=== PATIENT | female | born 1935 | race Caucasian/White ===

== ENCOUNTER 2016-07-25 03:09 | Emergency (ER) | payer OTHER, MEDICARE ==
[~2016-07-25] VITALS: Ht 165.1 cm; Wt 61.2 kg
[~2016-07-25 03:09] MED LIST: CALCIUM + D3 E1 EACH PO; DAILY MULTIPLE1 EACH PO; KEFLEX500 MG PO; OMEGA-3 ACID ETH1 GM PO; PROBIOTIC FORM1 EACH PO; SERTRALINE HCL50 MG PO; VIBRAMYCIN 100100 MG PO; VITAMIN B122500 MC1 PO; VITAMIN D-32000 UNIT PO; VITAMIN E400 UNI1 PO; XANAX 0.25MG0.25 MG PO
[2016-07-25 03:18] VITALS: BP 129/77
[2016-07-25] MEDS ORDERED: ZOFRAN ODT4 M1 SL (03:31)
--- NOTE | 2016-07-25 03:32 | ED GI/GU/ABDOMINAL COMPLAINT ---
History of Present Illness General Chief Complaint: General Adult Stated Complaint: BIBA, VOMITING, WEAKNESS Source: patient, family, old records, EMS Exam Limitations: no limitations Vital Signs & Intake/Output Vital Signs & Intake/Output Vital Signs Date Time Temp Pulse Resp B/P Pulse O2 O2 Flow FiO2 Ox Delivery Rate 07/25 0318 97.3 93 16 129/77 95 Room Air Allergies Coded Allergies: MDX - PCN (penicillin) (PCN (PENICILLIN)) (Intermediate, HIVES 03/25/15) Reconcile Medications Alprazolam (Xanax 0.25MG Tab) 0.25 MG TAB 1 TAB PO QHS PRN ANXIETY Calcium/Vitamin D (Calcium + D) (Unknown Strength) TAB (Unknown Dose) PO BID SUPPLEMENT (Reported) Cholecalciferol (Vitamin D3) (Vitamin D-3) 2,000 UNIT TABLET 1 TAB PO DAILY VITAMIN SUPPORT (Reported) Cyanocobalamin (Vitamin B-12) (Vitamin B12) 2,500 MCG TABLET 1 TAB PO DAILY VITAMIN SUPPORT (Reported) Doxycycline (Vibramycin 100 MG Cap) 100 MG CAP 1 TAB PO BID INFN Lactobacillus Acidophilus (Probiotic Formula Capsule) 1 CAP CAP 1 CAP PO DAILY SUPPLEMENT (Reported) Multivitamin (Daily Multiple Vitamin) 1 EACH TABLET 1 TAB PO DAILY VITAMIN SUPPORT (Reported) Chloe-3 Acid Ethyl Esters 1 GM CAPSULE 2 CAP PO DAILY VITAMIN SUPPORT ( Reported) Ondansetron (Zofran Odt) 4 MG TAB.RAPDIS 1 TAB SL TID PRN nausea/vomiting Sertraline HCl 50 MG TABLET 1 TAB PO DAILY PRN ANXIETY (Reported) Vitamin E (E400) (Unknown Strength) SGL 3 SGL PO DAILY SUPPLEMENT (Reported) Triage Note: PT BIBA FROM [facility]. PER PT, SHE HAS BEEN FEELING FINE ALL DAY LONG. SHE WOKE UP ABOUT 2 HOURS AGO AND EXPERIENCED SOME N/V. PT STATES HER LAST MEAL WAS AROUND 5PM. PT ARRIVES TO ED ALERT AND ORIENTED. PT HAS NO COMPLAINTS AT THIS TIME ASIDE FORM BEING TIRED. Triage Nurses Notes Reviewed? yes LMP (ages 10-50): post menopausal ? n Is pt currently ? No Onset: Just prior to arrival Duration: hour(s):, better, intermittent Timing: no prior history Quality/Severity: mild, vomiting Radiation: no radiation Activities at Onset: none Prior Abdominal Problems: none Past Sexual History: Unobtainable at this time Associated Symptoms: nausea/vomiting HPI: Several hours prior to admission patient had episode of vomiting. She reports having gait instability and episodic dizziness and fell without injury prior to admission. Patient was helped to her bedroom she vomited again. She denies fever chills abdominal pain diarrhea chest pain cough shortness of breath dysuria rash bleeding. Past History Travel History Traveled to [place] past 21 day No Medical History Any Pertinent Medical History? see below for history Neurological: SHUNT SPINAL MENINGITIS Gastrointestinal: CDIF Psychiatric: anxiety Cancer(s): lung cancer Other Medical Hx: Left lower extremity cellulitis Surgical History Surgical History: pelvic lymph node dissection approximately 50 years ago. Psychosocial History Who do you live with Patient/Self What is your primary language Djiboutian Tobacco Use: Never used ETOH Use: denies use Illicit Drug Use: denies illicit drug use Family History Hx Contributory? No Review of Systems Review of Systems Constitutional: Reports: no symptoms. EENTM: Reports: no symptoms. Respiratory: Reports: no symptoms. Cardiovascular: Reports: no symptoms. GI: Reports: see HPI, vomiting. Genitourinary: Reports: no symptoms. Musculoskeletal: Reports: no symptoms. Skin: Reports: no symptoms. Neurological/Psychological: Reports: no symptoms. Hematologic/Endocrine: Reports: no symptoms. Immunologic/Allergic: Reports: no symptoms. All Other Systems: Reviewed and Negative Physical Exam Physical Exam General Appearance: well developed/nourished, alert, awake, anxious, comfortable Head: atraumatic, normal appearance Eyes: Bilateral: normal appearance, PERRL, EOMI, normal inspection. Ears, Nose, Throat, Mouth: hearing grossly normal, moist mucous membrane Neck: normal inspection, supple, full range of motion, normal alignment Respiratory: normal breath sounds, chest non-tender, no respiratory distress, quiet respiration, lungs clear Cardiovascular: regular rate/rhythm, normal peripheral pulses, norml femoral pulses equa Peripheral Pulses: 4+ carotid (R), 4+ carotid (L) Gastrointestinal: normal bowel sounds, soft, non-tender, no organomegaly Back: normal inspection, normal range of motion, no vertebral tenderness Extremities: normal range of motion, no ligament instability Neurologic/Psych: no motor/sensory deficits, awake, alert, normal mood/affect, posting clerk II-XII nml as tested Skin: intact, normal color Core Measures ACS in differential dx? No Severe Sepsis Present: No Septic Shock Present: No Progress Differential Diagnosis: gastritis, pancreatitis, PUD/GERD Plan of Care: Current Medications Sig/Mike Start time Last Medication Dose Stop Time Status Admin Acetaminophen 900 MG ONCE ONE 07/250 CANr (Ofirmev) 07/25 330 Famotidine 20 MG ONCE ONE 07/25 329 CANr (Pepcid) 07/25 330 Initial ED EKG: none Comments: Patient declines diagnostic testing Departure Departure Time of Disposition: 329 Disposition: HOME OR SELF CARE Condition: Stable Clinical Impression Primary Impression: Vomiting alone Qualifiers: Vomiting type: unspecified Vomiting Intractability: non-intractable Qualified Code: R11.11 - Vomiting without nausea Referrals: SHANE DIAZ,CARLA Gottlieb (PCP/Family) Additional Instructions: Clear liquids for 12-24 hours until better Departure Forms: Customer Survey General Discharge Information Prescriptions: Current Visit Scripts Ondansetron (Zofran Odt) 1 TAB SL TID PRN nausea/vomiting #15 TAB
== END 2016-07-25 03:45 ==
LOC: ERH 03:09
DX: R11.2 Nausea with vomiting, unspecified (principal)
CPT/HCPCS: J3101

== ENCOUNTER 2016-07-25 08:27 | Inpatient (IN) | payer OTHER, MEDICARE ==
[~2016-07-25] VITALS: Ht 172.7 cm; Wt 68.0 kg
[~2016-07-25 08:27] MED LIST changes: +ZOFRAN ODT4 M1 SL
--- NOTE | 2016-07-25 09:43 | ED AMS/SEIZURE/WEAK/DIZZY ---
History of Present Illness General Chief Complaint: General Adult Stated Complaint: SHARP PAIN IN HEAD; L HIP PAIN S/P FALL Source: patient, family, old records Exam Limitations: no limitations Vital Signs & Intake/Output Vital Signs & Intake/Output Vital Signs Date Time Temp Pulse Resp B/P Pulse O2 O2 Flow FiO2 Ox Delivery Rate 07/25 1518 97.4 77 18 121/60 97 Room Air 07/25 0840 98.1 80 20 101/66 96 Room Air Allergies Coded Allergies: Penicillins (Intermediate, HIVES 07/25/16) Reconcile Medications Bacillus Coagulans/Inulin (Probiotic Formula Capsule) 1 BILLION CELL-250 MG CAPSULE 1 CAP PO DAILY SUPPLEMENT (Reported) Calcium Carb & Citrate/Vit D3 (Calcium + D3 ER Tablet) 600 MG CALCIUM-500 UNIT TABLET.ER 1 TAB PO BID SUPPLEMENT (Reported) Cholecalciferol (Vitamin D3) (Vitamin D-3) 2,000 UNIT TABLET 1 TAB PO DAILY VITAMIN SUPPORT (Reported) Cyanocobalamin (Vitamin B-12) (Vitamin B12) 2,500 MCG TABLET 1 TAB PO DAILY VITAMIN SUPPORT (Reported) Multivitamin (Daily Multiple Vitamin) 1 EACH TABLET 1 TAB PO DAILY VITAMIN SUPPORT (Reported) Lyman-3 Acid Ethyl Esters 1 GM CAPSULE 2 CAP PO DAILY VITAMIN SUPPORT ( Reported) Ondansetron (Zofran Odt) 4 MG TAB.RAPDIS 1 TAB SL TID PRN nausea/vomiting Vitamin E (Dl,Tocopheryl Acet) (Vitamin E) 400 UNIT CAPSULE 3 SGL PO DAILY SUPPLEMENT (Reported) Triage Note: SEEN HERE LAST NIGHT FOR SAME PROBLEM, STATES SHE LOST HER BALANCE AND FELL YESTERDAY INJURING HER LEFT SIDE. DENIES HITTING HEAD. STATES SHE WAS EVALUATED THIS MORNING AT [facility] AND TOLD TO COME BACK IN TO ED D/T UNABLE TO WALK Triage Nurses Notes Reviewed? yes HPI: 80-YEAR-OLD FEMALE HISTORY OF MULTIPLE FALLS AND worsening left leg weakness over the last several weeks perturbing to her falls, returns to the ER for inability to ambulate. She was seen here last night after a fall at her assisted living facility. She also had an incidence of nausea and vomiting after dinner. She presented here last evening asymptomatic and received nausea medication and felt better and was discharged back to the facility at 5 AM this morning. She was unable to get up and walk this morning and was sent back here for further evaluation. She recalls the events of the fall last evening, there was no loss of consciousness, she states she did not hit her head, she fell off to her left side. She did not have any pain at the time however this morning planes of left hip pain. Her left leg feels weaker than usual. She also has left-sided head pain that occurred for a few hours overnight that was sharp and now has resolved. She denies any confusion. She was seen by her primary care doctor for her gradual worsening left leg weakness and her doctor has ordered physical therapy for her however it is yet to start. She is having coordination problems with walking and feels off balance. She denies any pain at this time while sitting in the bed, she has left lateral hip pain with motion and with standing. There is no neck pain. (MINE CISNEROS) Past History Travel History Traveled to [place] past 21 day No Medical History Any Pertinent Medical History? see below for history Neurological: SHUNT SPINAL MENINGITIS Gastrointestinal: CDIF Psychiatric: anxiety Cancer(s): lung cancer Other Medical Hx: Left lower extremity cellulitis Surgical History Surgical History: pelvic lymph node dissection approximately 50 years ago. Psychosocial History Who do you live with Patient/Self What is your primary language Persian Tobacco Use: Never used ETOH Use: occasional use Illicit Drug Use: denies illicit drug use Family History Hx Contributory? No (MINE CISNEROS) Review of Systems Review of Systems Constitutional: Reports: see HPI. EENTM: Reports: no symptoms. Respiratory: Reports: no symptoms. Cardiovascular: Reports: no symptoms. GI: Reports: no symptoms. Genitourinary: Reports: no symptoms. Musculoskeletal: Reports: see HPI. Skin: Reports: no symptoms. Neurological/Psychological: Reports: see HPI. Hematologic/Endocrine: Reports: no symptoms. Immunologic/Allergic: Reports: no symptoms. All Other Systems: Reviewed and Negative (MINE CISNEROS) Physical Exam Physical Exam General Appearance: well developed/nourished Comments: Well-developed well-nourished person in no acute distress HEENT: Normal EENT exam, extraocular motion intact, no nystagmus. Pupils equally round and reactive to light. Nose is atraumatic. External auditory canal and Tympanic membranes clear. Pharynx normal. No swelling or edema. Neck: Supple, no lymphadenopathy, normal range of motion without pain or tenderness Back: Nontender, no CVA tenderness. Full range of motion Cardiovascular: Regular rate and rhythms no murmurs, normal JVP Respiratory: Chest nontender. No respiratory distress. Breath sounds clear to auscultation bilaterally Abdomen: Soft, nontender nondistended, no appreciable organomegaly. Normal bowel sounds. No ascites Extremity: No edema, no calf tenderness to palpation, normal and equal pulses. There is mild tenderness to the greater trochanter of the left hip. Neuro: Alert oriented x3, sensory normal, cranial nerves II through XII grossly intact. Patient's coordination is slightly off with the left lower extremity and left upper extremity. Patient with mild weakness of the left arm and left leg.. There is no past pointing. Skin: No appreciable rash on exposed skin, skin is warm and dry. Psych: Mood and affect is normal, memory and judgment is normal. Patient's gait is unstable with a walker, she is dragging her left leg. Core Measures ACS in differential dx? No CVA/TIA Diagnosis: No NIH Stroke Scale: Total 1 Reason tPA not ordered Medical Contraindication Comment: PASSED BEDSIDE SWALLOW Severe Sepsis Present: No Septic Shock Present: No (SAY SAUNDERS,MINE) Progress Differential Diagnosis: arrythmia, alcohol intoxication, anemia, benign positional vertigo, CVA/stroke, dehydration, drug intoxication, encephalitis, electrolyte imbalance, GI bleed, hypoglycemia, hypoxia, intracranial Hem., intracranial mass/tumor, labrynthitis, meningitis, Meniere's disease, migraine P[place]NAM, multiple sclerosis, pneumonia, postural hypotension, presyncope, post- traumatic vertigo, sepsis, seizure disorder, subarachnoid Hem., UTI/pyelo, vertebrobasilar insuff Plan of Care: Orders Procedure Date/time Status Regular Diet 07/25 D Active Intake & Output 07/25 1613 Active [id number] DOPPLER 07/25 1508 Active ECHOCARDIOGRAM 07/25 1508 Active Misc Message 07/25 1455 Active ED Holding Orders 07/25 1455 Active Vital Signs 07/25 1455 Active PT Evaluate & Treat 07/25 1448 Active Pathway - chart 07/25 1448 Active House Staff 07/25 1448 Active Patient Data 07/25 1448 Active Code Status 07/25 1448 Active Admit to inpatient 07/25 1437 Active Patient Data 07/25 1329 Active PT Evaluate & Treat 07/25 1155 Active CASE MANAGEMENT CONSULT 07/25 1155 Active CULTURE,URINE 03/24 0936 Active URINALYSIS 07/26 935 Complete MAGNESIUM 07/26 935 Complete COMPREHENSIVE METABOLIC PANEL 07/26 935 Complete CBC WITHOUT DIFFERENTIAL 07/26 935 Complete EKG 07/26 935 Active Neuromuscular Re-Ed 15Min Ea 07/25 UNK Complete MOBILITY GOAL STATUS 07/25 UNK Complete MOBILITY CURRENT STATUS 07/25 UNK Complete PT EVAL MOD COMPLEX 30 MIN 07/25 UNK Complete VTE Mechanical Prophylaxis 07/25 UNK Active Telemetry/Basket Grader 07/25 UNK Active NIH Stroke Scale 07/25 UNK Active Current Medications Sig/Mike Start time Last Medication Dose Stop Time Status Admin Cholecalciferol 2,000 IU DAILY 07/26 1000 AC (Vitamin D) Cyanocobalamin 2,500 MCG DAILY 07/26 1000 AC (Vitamin B12) Enoxaparin Sodium 40 MG DAILY 07/26 1000 AC (Lovenox) Lactobacillus 1 CAP DAILY 07/26 1000 AC Acidophilus (Probiotic) Multivitamins 1 TAB DAILY 07/26 1000 AC Therapeutic (Theragran-M Vitamins Tabs) Vitamin E 400 IU DAILY 07/26 1000 AC (Vitamin E) Calcium/Vitamin D 1 TAB BID 07/25 2200 AC (Caltrate 600 + D) Atorvastatin Calcium 80 MG 1700 07/25 1700 AC (Lipitor) Acetaminophen 650 MG Q6P PRN 07/25 1500 AC (Tylenol) Laboratory Tests 07/25/16 1107: Urine Color YEL, Urine Clarity CLEAR, Urine pH 7.0, Ur Specific Ney 1.015, Urine Protein NEG, Urine Ketones NEG, Urine Nitrite NEG, Urine Bilirubin NEG, Urine Urobilinogen 0.2, Ur Leukocyte Esterase NEG, Ur Microscopic SEDIMENT EXAMINED, Urine RBC 3-5, Urine WBC 1-3 H, Ur Epithelial Cells RARE, Urine Bacteria MOD H, Urine Hemoglobin TRACE-INTACT, Urine Glucose NEG 07/25/16 1035: Anion Gap 8, Estimated GFR > 60, BUN/Creatinine Ratio 41.3 H, Glucose 94, Calcium 9.0, Magnesium 2.0, Total Bilirubin 1.1, AST 24, ALT 32, Alkaline Phosphatase 60, Total Protein 6.5, Albumin 3.8, Globulin 2.7, Albumin/Globulin Ratio 1.4, CBC w Diff MAN DIFF ORDERED, RBC 3.91 L, MCV 91.6, MCH 30.4, RDW 15.1 H, MPV 6.9 L, Gran % 93.9 H, Lymphocytes % 1.8 L, Monocytes % 4.0, Eosinophils % 0.3, Basophils % 0 L, Absolute Granulocytes 7.2 H, Absolute Lymphocytes 0.1 L, Absolute Monocytes 0.3, Absolute Eosinophils 0, Absolute Basophils 0, Platelet Estimate VERIFIED BY SMEAR, Normocytic RBCs VERIFIED, Normochromic RBCs VERIFIED, Anisocytosis 1+, PUBS MCHC 33.2 Microbiology 07/25 1107 URINE ROUT: Urine Culture - RECD Diagnostic Imaging: Viewed by Me: Radiology Read, CT Scan. Discussed w/RAD: Radiology Read, CT Scan. Radiology Impression: PATIENT: HERIBERTO AGUILAR PRESENT AGE: 80 PATIENT ACCOUNT NO: [id number] : 34 LOCATION: ER ORDERING PHYSICIAN: MINE SAUNDERS SERVICE DATE: 07/25/16 EXAM TYPE : RAD - XRY-HIP 2-3 VIEWS, LEFT EXAMINATION: XR HIP, LEFT CLINICAL INFORMATION: Fall. Pain. COMPARISON: None TECHNIQUE: Two views of the left hip. FINDINGS: No visible acute fracture, dislocation or lytic process seen. The soft tissues are normal. IMPRESSION: Unremarkable left hip exam. DICTATED BY: NELLY DIAZJACK DATE/TIME DICTATED:07/25/161037 DOUBLE NEEDLE OPERATOR:MIREYA DATE/TIME TRANSCRIBED:07/25/16, PATIENT: HERIBERTO AGUILAR PRESENT AGE: 80 PATIENT ACCOUNT NO: [id number] : 34 LOCATION: ER ORDERING PHYSICIAN: MINE SAUNDERS SERVICE DATE: 07/25/16 EXAM TYPE : CAT - CT HEAD WO IV CONTRAST EXAMINATION: CT HEAD WITHOUT CONTRAST CLINICAL INFORMATION: Status post fall with left-sided weakness, question CVA. COMPARISON : 12/31/2010. TECHNIQUE: Contiguous axial imaging was performed from the skull base to vertex without intravenous administration of contrast. DLP: 601 mGy-cm FINDINGS: FINDINGS: There is no evidence of acute intracranial hemorrhage or territorial infarction. No abnormal mass effect or midline shift is seen. Campos to white matter differentiation is well preserved. No extra-axial fluid collections are identified. The lateral and third ventricles remain significantly dilated out of proportion to the sulcal atrophy with a ventricular shunt in place from a right frontal approach with its tip centrally located. Overall dilatation of the ventricular system appears largely unchanged to the 2011 exam without the shunt in place. There is no abnormal attenuation within the brain parenchyma. The osseous structures and soft tissues are normal. The mastoid air cells and visualized portions of the paranasal sinuses are well aerated. The petrous apices are pneumatized and clear. 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 DICTATED BY: CHI DUVALL MD DATE/TIME DICTATED:07/25/161115 DOUBLE NEEDLE OPERATOR:MIREYA Initial ED EKG: NSR, rate (70), RBBB Prior EKG: unchanged Rhythm Strip: normal sinus rhythm Comments: Patient was evaluated by physical therapy due to gait disturbance. She was deemed unsafe for discharge. Discussed with Dr. Lagunas, possible multiple TIAs versus CVA, recommends aspirin and statin and CVA workup. This was conveyed to the hospitalist Dr. Bustos. (MINE CISNEROS) Departure Departure Disposition: STILL A PATIENT Condition: Stable Clinical Impression Primary Impression: Left-sided muscle weakness Secondary Impressions: Dehydration, Frequent falls, Gait disturbance Referrals: CARLA LYNN MD (PCP/Family) Departure Forms: Customer Survey General Discharge Information Admission Note Spoke With: ANUM BORGES MD Documentation of Exam: Documentation of any treatments & extenuating circumstances including Concerns Regarding Discharge (functional status, medication knowledge or non-compliance, living conditions, etc.) that warrant an admission rather than observation: 80-year-old female with left-sided weakness and coordination difficulty gait difficulty, had PT consult here in the ER and has failed, they recommended short -term rehabilitation potentially. She is unsafe to be discharged home. Her BUN /creatinine ratio is elevated suggestive of dehydration and she is given IV fluids. I'm concerned of her gait disturbance, her vomiting yesterday, her left leg and left arm weakness and coordination difficulty is getting worse over the last week, possibly this is a shunt malfunction due to her history of NPH although CT scan was unremarkable, also concerned of possible CVA however CT scan was unremarkable, possible mild multiple TIAs. Her function is well below baseline and she has demonstrated that she is not safe at home with her multiple falls. She needs physical therapy, gait training, IV fluids, possible neurology consult (MINE CISNEROS) PA/STRETCH BOX TENDER Co-Sign Statement Statement: ED Attending supervision documentation- [X] I saw and evaluated the patient. I have also reviewed all the pertinent lab results and diagnostic results. I agree with the findings and the plan of care as documented in the PA's/STRETCH BOX TENDER's documentation. [] I have reviewed the ED Record and agree with the PA's/STRETCH BOX TENDER's documentation. [] Additions or exceptions (if any) to the PAs/STRETCH BOX TENDER's note and plan are summarized below: [] (DOMENIC TERRY DO
--- NOTE | 2016-07-25 10:42 | RADIOLOGY REPORT ---
EXAMINATION: XR HIP, LEFT CLINICAL INFORMATION: Fall. Pain. COMPARISON: None TECHNIQUE: Two views of the left hip. FINDINGS: No visible acute fracture, dislocation or lytic process seen. The soft tissues are normal. IMPRESSION: Unremarkable left hip exam.
[2016-07-25 10:49] LABS: ABSOLUTE BASOPHIL COUNT 0 /CUMM (0.0-0.2); ABSOLUTE EOSINOPHIL COUNT 0 /CUMM (0.0-0.7); ABSOLUTE GRANULOCYTE CT 7.2 /CUMM (1.4-6.5); ABSOLUTE LYMPH COUNT 0.1 /CUMM (1.2-3.4); ABSOLUTE MONOCYTE COUNT 0.3 /CUMM (0.10-0.60); BASOPHIL % 0 % (0.0-2.0); EOSINOPHIL % 0.3 % (0-5); HEMATOCRIT 35.8 % (37-47); MEAN CORPUSCULAR HGB 30.4 PG (27.0-31.0); MEAN CORPUSCULAR HGB CONC 33.2 G/DL (33.0-37.0); MEAN CORPUSCULAR VOLUME 91.6 FL (81.0-99.0); MEAN PLATELET VOLUME 6.9 FL (7.4-10.4); PLATELET COUNT 193 /CUMM (130-400); RBC DISTRIBUTION WIDTH 15.1 % (11.5-14.5); RED BLOOD CELL CT 3.91 /CUMM (4.20-5.40); WHITE BLOOD CELL COUNT 7.7 /CUMM (4.8-10.8)
[2016-07-25 10:52] LABS: GRANULOCYTE % 93.9 % (42.2-75.2)
--- NOTE | 2016-07-25 11:27 | CT SCAN REPORT ---
EXAMINATION: CT HEAD WITHOUT CONTRAST CLINICAL INFORMATION: Status post fall with left-sided weakness, question CVA. COMPARISON: 12/31/2010. TECHNIQUE: Contiguous axial imaging was performed from the skull base to vertex without intravenous administration of contrast. DLP: 601 mGy-cm FINDINGS: FINDINGS: There is no evidence of acute intracranial hemorrhage or territorial infarction. No abnormal mass effect or midline shift is seen. Campos to white matter differentiation is well preserved. No extra-axial fluid collections are identified. The lateral and third ventricles remain significantly dilated out of proportion to the sulcal atrophy with a ventricular shunt in place from a right frontal approach with its tip centrally located. Overall dilatation of the ventricular system appears largely unchanged to the 2011 exam without the shunt in place. There is no abnormal attenuation within the brain parenchyma. The osseous structures and soft tissues are normal. The mastoid air cells and visualized portions of the paranasal sinuses are well aerated. The petrous apices are pneumatized and clear. 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
--- NOTE | 2016-07-25 13:32 | History & Physical ---
HUMZA DIAZ,[facility] 07/25/16 1331: General Information and HPI MD Statement: I have seen and personally examined HERIBERTO AGUILAR and documented this H&P. The patient is a 80 year old F who presented with a patient stated chief complaint of gait instability. Source of Information: patient, family, old records Exam Limitations: no limitations History of Present Illness: Ms. Aguilar is a 80 y/o F with PMHx of normal pressure hydrocephalus s/p ventriculoperitoneal shunt placement, remote history of lymphoma, squamous cell carcinoma of the lung s/p right upper lobectomy who presents from [facility] with worsening gait instability and new-onset of left leg weakness x1 week. Patient has a longstanding history of gait instability and balance problems secondary to NPH with subsequent ventriculoperitoneal shunt placement at [facility] in 2010 with some improvement of her symptoms. For one week prior to current presentation, patient's gait difficulties have been worsening. In addition to worsening of her preexisting balance difficulties , patient has also developed left leg weakness during this time and appears to be dragging her left leg which she describes as her "toes turning in". Patient also reports that her urinary retention has been worsening for the past 1-2 weeks. Patient presented to the ED the night prior to current presentation complaining of nausea and vomiting following a fall to her left side without associated loss of consciousness or head trauma and was discharged after improvement of her nausea with Zofran within a few hours. However since being discharged, patient has developed left hip pain as well as worsening leg weakness and has been unable to ambulate which prompted her to return to the ED. Of note, since the morning of current presentation, she has been experiencing 7 out of 10 sharp headache on the right side of her head. According to her son, she had a transient episode of slight confusion this morning. Patient denies left arm weakness, speech difficulties, headache or blurry vision. Allergies/Medications Allergies: Coded Allergies: Penicillins (Intermediate, HIVES 07/25/16) Home Med list Bacillus Coagulans/Inulin (Probiotic Formula Capsule) 1 BILLION CELL-250 MG CAPSULE 1 CAP PO DAILY SUPPLEMENT (Reported) Calcium Carb & Citrate/Vit D3 (Calcium + D3 ER Tablet) 600 MG CALCIUM-500 UNIT TABLET.ER 1 TAB PO BID SUPPLEMENT (Reported) Cholecalciferol (Vitamin D3) (Vitamin D-3) 2,000 UNIT TABLET 1 TAB PO DAILY VITAMIN SUPPORT (Reported) Cyanocobalamin (Vitamin B-12) (Vitamin B12) 2,500 MCG TABLET 1 TAB PO DAILY VITAMIN SUPPORT (Reported) Multivitamin (Daily Multiple Vitamin) 1 EACH TABLET 1 TAB PO DAILY VITAMIN SUPPORT (Reported) [place]-3 Acid Ethyl Esters 1 GM CAPSULE 2 CAP PO DAILY VITAMIN SUPPORT ( Reported) Ondansetron (Zofran Odt) 4 MG TAB.RAPDIS 1 TAB SL TID PRN nausea/vomiting Vitamin E (Dl,Tocopheryl Acet) (Vitamin E) 400 UNIT CAPSULE 3 SGL PO DAILY SUPPLEMENT (Reported) Past History Travel History Traveled to [place] past 21 day No Medical History Neurological: meningitis (as a child), normal pressure hydrocephalus Gastrointestinal: C. diffile colitis Musculoskeletal: fracture (right hip) Psychiatric: anxiety Cancer(s): lung cancer, lymphoma (remote history) Other Medical Hx: Left lower extremity cellulitis Surgical History Surgical History: appendectomy, pelvic lymph node dissection approximately 50 years ago, ventriculoperitoneal shunt placement, right upper lobectomy, tonsillectomy, ORIF for right hip fracture Past Family/Social History Family History Relations & Conditions if any FATHER, , Age 60+; Cause: ASHD (arteriosclerotic heart disease). FH: CAD (coronary artery disease) MOTHER, , Age 60+. Psychosocial History Where do you live? Assisted Living Who Do You Live With? self Primary Language: Pakistani Smoking Status: Former Smoker (Quit >35 Years Ago) ETOH Use: occasional use (1 glass of wine with dinner) Illicit Drug Use: denies illicit drug use Functional Ability ADLs Independent: dressing, eating, toileting, bathing. Ambulation: cane Employment History Employment Retired Profession/Employer Retired Media Aide at [employer] Review of Systems Review of Systems Constitutional: Denies: chills, fever. EENTM: Denies: visual changes. Cardiovascular: Denies: chest pain. Respiratory: Denies: short of breath. GI: Denies: abdominal pain, constipation, diarrhea, nausea, vomiting. Genitourinary: Reports: no symptoms. Musculoskeletal: Reports: see HPI. Skin: Reports: no symptoms. Neurological/Psychological: Reports: ataxia, headache, weakness (left leg). Denies: numbness, paresthesia. Hematologic/Endocrine: Reports: no symptoms. Immunologic/Allergic: Reports: no symptoms. All Other Systems: Reviewed and Negative Exam & Diagnostic Data Last 24 Hrs of Vital Signs/I&O Vital Signs Date Time Temp Pulse Resp B/P Pulse O2 O2 Flow FiO2 Ox Delivery Rate 07/25 0840 98.1 80 20 101/66 96 Room Air Intake & Output 07/25 1600 07/25 0800 07/25 0000 Intake Total Output Total Balance Patient 65.771 kg Weight Physical Exam General Appearance Alert, Oriented X3, No Acute Distress Skin No Rashes HEENT Atraumatic, Mucous Membr. moist/pink Neck Supple, +2 Carotid Pulse wo Bruit Cardiovascular Regular Rate, Normal S1, Normal S2 Lungs Clear to Auscultation Abdomen Soft, No Tenderness, Positive Bowel Sounds Neurological Normal Speech, Sensation Intact, Cranial Nerves 3-12 NL, LLE with Slightly Decreased Strength, No Dysmetria on Cerebellar Testing, Romberg Could Not Be Tested Due to Dizziness Extremities No Clubbing, No Cyanosis, 1+ Edema on Bilateral Lower Extremities Last 24 Hrs of Labs/Agapito: Laboratory Tests 07/25/16 1107: Urine Color YEL, Urine Clarity CLEAR, Urine pH 7.0, Ur Specific [place] 1.015, Urine Protein NEG, Urine Ketones NEG, Urine Nitrite NEG, Urine Bilirubin NEG, Urine Urobilinogen 0.2, Ur Leukocyte Esterase NEG, Ur Microscopic SEDIMENT EXAMINED, Urine RBC 3-5, Urine WBC 1-3 H, Ur Epithelial Cells RARE, Urine Bacteria MOD H, Urine Hemoglobin TRACE-INTACT, Urine Glucose NEG 07/25/16 1035: Anion Gap 8, Estimated GFR > 60, BUN/Creatinine Ratio 41.3 H, Glucose 94, Calcium 9.0, Magnesium 2.0, Total Bilirubin 1.1, AST 24, ALT 32, Alkaline Phosphatase 60, Total Protein 6.5, Albumin 3.8, Globulin 2.7, Albumin/Globulin Ratio 1.4, CBC w Diff MAN DIFF ORDERED, RBC 3.91 L, MCV 91.6, MCH 30.4, RDW 15.1 H, MPV 6.9 L, Gran % 93.9 H, Lymphocytes % 1.8 L, Monocytes % 4.0, Eosinophils % 0.3, Basophils % 0 L, Absolute Granulocytes 7.2 H, Absolute Lymphocytes 0.1 L, Absolute Monocytes 0.3, Absolute Eosinophils 0, Absolute Basophils 0, Platelet Estimate VERIFIED BY SMEAR, Normocytic RBCs VERIFIED, Normochromic RBCs VERIFIED, Anisocytosis 1+, PUBS MCHC 33.2 Microbiology 07/25 1107 URINE ROUT: Urine Culture - RECD Diagnostic Data EKG Results Sinus rhythm HR 71 RBBB and LAFB QTc 474 Other Results L HIP XR (07/25/16): Unremarkable left hip exam. CT HEAD (07/25/16): There is stable appearing hydrocephalus with a new ventricular shunt from a right-sided approach since the previous exam. Assessment/Plan Assessment: 80 y/o F with PMHx of normal pressure hydrocephalus s/p ventriculoperitoneal shunt placement who presents with worsening gait instability. #Gait instability: Differential includes worsening hydrocephalus secondary to progression of NPH or shunt malfunction and TIA/CVA given new-onset leg weakness. Neuro exam nonfocal except for minimal LLE weakness. CT Head negative for acute infarct and with stable appearing hydrocephalus. * Admit to telemetry for continuous cardiac monitoring. * Neurology consulted. Appreciate their recs. * Passed bedside swallow eval. Regular diet ordered. * Carotid Doppler US and ECHO ordered to rule out embolic source. * PT/OT eval. * Check MRI Head W/WO JANINE if shunt is MRI-compatible. * Give 325 mg of aspirin. Start aspirin 81 mg PO daily. * Neurochecks Q4H. * Start atorvastatin 80 mg PO daily. * Allow permissive hypertension to a BP of 220/120 mmHg for the next 48-72 hours. Diet: Regular Fluids: NS @ 75 cc/hr DVT PPx: Lovenox and ALPs CODE: DNR/DNI As Ranked By This Provider Problem List: 1. Gait disturbance 2. Normal pressure hydrocephalus 3. Left leg weakness Core Measures/Miscellaneous Acute Coronary Syndrome ACS Diagnosis: No Cerebrovascular Accident CVA/TIA Diagnosis: Yes (Suspected) NIH Stroke Scale: Total 1 Date Last Known Well: 07/18/16 Time Last Known Well: 0000 (Unknown) Neurological S/S of CVA: Doesn't Walk, Weakness of Limb Symptom Start Date: 07/18/16 Symptom Start Time: 0000 (Unknown) Reason tPA not ordered Medical Contraindication (Minimally Symptomatic) Bedside Swallow Eval Done: Yes Result of Evaluation: Pass Days in Hospital: Still in hospital Antithrombotic: Yes AFIB: No Aflutter: No Anticoagulant: No No Anticoag d/t: Medical Contraindication (No history of Afib) Evidence of Atherosclerosis: No LDL Assessed Within 24 Hours: Yes Currently on Statin: Yes Rehab Needs Assessed: Medical Eval for Rehab PT Consult Ordered: Yes Congestive Heart Failure CHF Diagnosis: No Venous Thromboembolism VTE Risk Factors: Acute medical illness, Age > 40, Immobility, paresis No [facility] VTE prophylaxis d/t: No contraindications No VTE Pharm Prophylaxis d/t: No contraindications VTE Diagnosis: No VTE Type: NONE VTE Confirmed by (Test): NONE Severe Sepsis Severe Sepsis Present: No Septic Shock Septic Shock Present: No Miscellaneous Documentation Attending Case Discussed With: AURORA KENNEDY MD Primary Care Physician: CARLA LYNN MD Patient sees these Specialists N/A Level of Patient Care: Telemetry KAREN BRAXTON 07/25/16 1535: Review of Systems Review of Systems Constitutional: Reports: see HPI. Assessment/Plan As Ranked By This Provider Problem List: 1. Gait disturbance Resident Review Statement Resident Statement: agreed with internal medicine specialist Other Findings: She is 80-year-old woman with past medical history of squamous cell lung cancer status post right lung lobectomy, history of lymphoma, past history of recurrent falls, right hip fracture status post ORIF, colitis, normal pressure hydrocephalus status post RESEARCH PHYSIOLOGIST shunt (RESEARCH PHYSIOLOGIST shunt was placed 7 years ago in [facility]. Patient does not regularly follow was her neurosurgeon) , skin cancer presented to ER from assisted living [facility], with complaint of unsteady Gait and worsening left leg weakness. Per patient and her son her gait has always been unsteady because of normal pressure hydrocephalus but left leg and arm weakness started 10 days ago and worsened in last 24 hours. Patient denies any headache, vision changes, speech or swallowing difficulty, numbness or tingling sensation of any part of her body, nausea, vomiting, abdominal pain, diarrhea or constipation. Patient is intermittently incontinent to urine. Denies any pain or burning upon micturition. She denies any history of smoking. Drinks 1 glass of wine at dinner. She walks with walker. Lives in assisted living [facility]. Vitals on admission: Temperature 90.8, pulse 80, respiratory rate 20, blood pressure 101/66 and oxygen saturation 96% on room air Positive physical exam findings: Pupils minimally reactive bilaterally, left- sided facial muscle weakness, sensations intact, strength 4/5 in left upper extremity. Strength 5/5 in both lower extremities. Cerebellar exam normal. Could not check her gait. 1+ pitting edema left lower extremity. Pertinent labs: H&H 11.9/35.8, BUN/creatinine 41.3 EKG: Normal sinus rhythm with no acute ST-T wave changes. Head CT: There is stable appearing hydrocephalus with new ventricular shunt from right-sided approach since previous exam Left Hip x-ray did not show any visible acute fracture, dislocation or lytic process. Assessment and plan She is 80-year-old woman with above-mentioned past medical history is going to be admitted on telemetry floor for Unsteady gait and worsening left-sided weakness. ? Stroke vs worsening of normal pressure hydrocephalus though neuro exam is not much significant. We will monitor vitals closely. Neuro checks every 4 hours. Patient does not have an swallowing difficulty and was eating her lunch in front of us without any difficulty. We will continue regular diet. Will start her on aspirin 325 mg daily and 80 mg of statin. Neuro consult. Carotid Doppler ultrasound. Echocardiogram. We asked son to provide also all information about neurosurgeon who placed RESEARCH PHYSIOLOGIST shunt. We will get an MRI eventually if shunt as compatible. Will continue all her home medications. Pain management pathway. Physical therapy evaluation and treatment. Subcutaneous Lovenox for DVT prophylaxis. DNR/DNI MARCIA DIAZ,AURORA 07/25/16 1540: Attending MD Review Statement Attending Statement Attending MD Statement: examined this patient, discuss w/resident/PA/CLIENT SERVICE ASSOCIATE, agreed w/resident/PA/CLIENT SERVICE ASSOCIATE, discussed with family, reviewed EMR data (avail), discussed with nursing, reviewed images, amended to note Attending Assessment/Plan: Also see my full addendum.
--- NOTE | 2016-07-25 15:18 | PN- Att Addend ---
Attending Addendum Attending Brief Note 80 y/o F with Past medical history significant for lymphoma status post local resection 30 years ago, history of right-sided lung cancer status post upper lobe lobectomy, spinal meningitis and history of normal pressure hydrocephalus requiring shunt placement who is presenting with complains off fall. Patient has been feeling imbalance and dragging her left lower extremity. Symptoms started about 10 days ago but much worse in the last 24 hours. She normally uses a walker but since last day or so symptoms are much worse. She was in the emergency room last night with some nausea and vomiting and was discharged after getting the medication. Her weakness did not improve therefore she presented to the hospital again. She did complain of mild urinary incontinence. She denies any speech difficulty or swallowing. She denies any headache. She denies any blurriness of her vision. She denies any weakness in any other part of the body. Vital Signs Date Time Temp Pulse Resp B/P Pulse O2 O2 Flow FiO2 Ox Delivery Rate 07/25 0840 98.1 80 20 101/66 96 Room Air on exam; aox3, nad. cv; s1,s2, rrr resp; clear abd; soft, nt, bs+ ext; no edema. neuro; slight weakness on lle otherwise non focal. Laboratory Tests 07/25 1107 Urines Urine Color (YEL,AMB,STR) YEL Urine Clarity (CLEAR) CLEAR Urine pH (5.0 - 8.0) 7.0 Ur Specific [place] (1.001 - 1.035) 1.015 Urine Protein (NEG,<30 MG/DL) NEG Urine Ketones (NEG) NEG Urine Nitrite (NEG) NEG Urine Bilirubin (NEG) NEG Urine Urobilinogen (0.1 - 1.0 EU/dl) 0.2 Ur Leukocyte Esterase (NEG) NEG Ur Microscopic SEDIMENT EXAMINED Urine RBC (0 - 5 /HPF) 3-5 Urine WBC (0 - 2 /HPF) 1-3 H Ur Epithelial Cells (NONE,FEW) RARE Urine Bacteria (NEG/NONE) MOD H Urine Hemoglobin (NEG) TRACE-INTACT Urine Glucose (N MG/DL) NEG 07/25 1035 Chemistry Sodium (137 - 145 mmol/L) 136 L Potassium (3.5 - 5.1 mmol/L) 4.5 Chloride (98 - 107 mmol/L) 100 Carbon Dioxide (22 - 30 mmol/L) 28 Anion Gap (5 - 16) 8 BUN (7 - 17 mg/dL) 33 H Creatinine (0.5 - 1.0 mg/dL) 0.8 Estimated GFR (>60 ml/min) > 60 BUN/Creatinine Ratio (7 - 25 %) 41.3 H Glucose (65 - 99 mg/dL) 94 Calcium (8.4 - 10.2 mg/dL) 9.0 Magnesium (1.6 - 2.3 mg/dL) 2.0 Total Bilirubin (0.2 - 1.3 mg/dL) 1.1 AST (14 - 36 U/L) 24 ALT (9 - 52 U/L) 32 Alkaline Phosphatase (<127 U/L) 60 Total Protein (6.3 - 8.2 g/dL) 6.5 Albumin (3.5 - 5.0 g/dL) 3.8 Globulin (1.9 - 4.2 gm/dL) 2.7 Albumin/Globulin Ratio (1.1 - 2.2 %) 1.4 Hematology CBC w Diff MAN DIFF ORDERED WBC (4.8 - 10.8 /CUMM) 7.7 RBC (4.20 - 5.40 /CUMM) 3.91 L Hgb (12.0 - 16.0 G/DL) 11.9 L Hct (37 - 47 %) 35.8 L MCV (81.0 - 99.0 FL) 91.6 MCH (27.0 - 31.0 PG) 30.4 RDW (11.5 - 14.5 %) 15.1 H Plt Count (130 - 400 /CUMM) 193 MPV (7.4 - 10.4 FL) 6.9 L Gran % (42.2 - 75.2 %) 93.9 H Lymphocytes % (20.5 - 51.1 %) 1.8 L Monocytes % (1.7 - 9.3 %) 4.0 Eosinophils % (0 - 5 %) 0.3 Basophils % (0.0 - 2.0 %) 0 L Absolute Granulocytes (1.4 - 6.5 /CUMM) 7.2 H Absolute Lymphocytes (1.2 - 3.4 /CUMM) 0.1 L Absolute Monocytes (0.10 - 0.60 /CUMM) 0.3 Absolute Eosinophils (0.0 - 0.7 /CUMM) 0 Absolute Basophils (0.0 - 0.2 /CUMM) 0 Platelet Estimate (ADEQUATE) VERIFIED BY SMEAR Normocytic RBCs VERIFIED Normochromic RBCs VERIFIED Anisocytosis 1+ PUBS MCHC (33.0 - 37.0 G/DL) 33.2 EKG>>> NSR, no acute changes. CT head: IMPRESSION: There is stable appearing hydrocephalus with a new ventricular shunt from a right-sided approach since the previous exam. CXR: IMPRESSION: Unremarkable left hip exam. A/P; 80 y/o F with Past medical history significant for lymphoma status post local resection 30 years ago, history of right-sided lung cancer status post upper lobe lobectomy, spinal meningitis and history of normal pressure hydrocephalus requiring shunt placement, now admitted with left lower extremities weakness, falls and difficulty walking likely secondary to possible stroke versus worsening of normal pressure hydrocephalus. CT scan showed no acute change and stable normal pressure hydrocephalus. Patient will be admitted to telemetry. She'll be started on full dose aspirin, statin. Echocardiogram will be obtained. Carotid Doppler ultrasound will be obtained. Patient will be allowed permissive hypertension x 48-72 hours. Please genetky hydrate her with IVfs x 1 liter, NS at 75 cchr. Please complete stroke core measures. Please obtain a bedside swallow eval and if she passes patient should be started on diet. Neurology will be consulted. Please check if patient can receive an MRI according to what kind of shunt she had. Please call her neurosurgeon to find that out. Continue other home medications. DVT prophylaxis: Heparin SQ. CODE STATUS is DNR/DNI. PT eval. D/W patient's son at bedside.
--- NOTE | 2016-07-25 16:58 | Cons- Neurology ---
General Information and HPI Consulting Request Date of Consult: 07/25/16 Requested By: MARCIA DIAZ,AURORA Reason for Consult: Left leg weakness Source of Information: patient, old records Exam Limitations: no limitations History of Present Illness: 80/F resident of assisted living with pertinent history of NPH shunted by Dr Garner at [facility] a few years ago with improvement but continued gait instability for which she uses a walker came to the ER today because of left leg weakness that started about one week ago. No worsening reported to me today, was concerned due to lack of resolution and falls. Denies associated numbness or weakness/numbness in the arm or face. She does report recent sharp pains in the right temporal region Allergies/Medications Allergies: Coded Allergies: Penicillins (Intermediate, HIVES 07/25/16) Home Med List: Bacillus Coagulans/Inulin (Probiotic Formula Capsule) 1 BILLION CELL-250 MG CAPSULE 1 CAP PO DAILY SUPPLEMENT (Reported) Calcium Carb & Citrate/Vit D3 (Calcium + D3 ER Tablet) 600 MG CALCIUM-500 UNIT TABLET.ER 1 TAB PO BID SUPPLEMENT (Reported) Cholecalciferol (Vitamin D3) (Vitamin D-3) 2,000 UNIT TABLET 1 TAB PO DAILY VITAMIN SUPPORT (Reported) Cyanocobalamin (Vitamin B-12) (Vitamin B12) 2,500 MCG TABLET 1 TAB PO DAILY VITAMIN SUPPORT (Reported) Multivitamin (Daily Multiple Vitamin) 1 EACH TABLET 1 TAB PO DAILY VITAMIN SUPPORT (Reported) Cornelius-3 Acid Ethyl Esters 1 GM CAPSULE 2 CAP PO DAILY VITAMIN SUPPORT ( Reported) Ondansetron (Zofran Odt) 4 MG TAB.RAPDIS 1 TAB SL TID PRN nausea/vomiting Vitamin E (Dl,Tocopheryl Acet) (Vitamin E) 400 UNIT CAPSULE 3 SGL PO DAILY SUPPLEMENT (Reported) Current Medications: Current Medications Sig/Mike Start time Last Medication Dose Route Stop Time Status Admin Acetaminophen 650 MG Q6P PRN 07/25 1500 AC PO Aspirin 0 .STK-MED ONE 07/25 1539 DC PO Aspirin 325 MG DAILY 07/25 1453 AC 07/25 PO 1540 Atorvastatin Calcium 80 MG 1700 07/25 1700 AC PO Calcium/Vitamin D 1 TAB BID 07/25 2200 AC PO Cholecalciferol 2,000 IU DAILY 07/26 1000 AC PO Cyanocobalamin 2,500 MCG DAILY 07/26 1000 AC PO Enoxaparin Sodium 40 MG DAILY 07/26 1000 AC SC Lactobacillus 1 CAP DAILY 07/26 1000 AC Acidophilus PO Multivitamins 1 TAB DAILY 07/26 1000 AC Therapeutic PO Patient Medication 1 UNIT ONE NR 07/25 1615 DC Teaching ED 07/25 1630 Sodium Chloride 1,000 ML ONCE ONE 07/25 1545 AC 07/25 IV 07/26 0504 1603 Sodium Chloride 1,000 ML BOLUS ONE 07/25 1315 DC 07/25 IV 07/25 1414 1359 Vitamin E 400 IU DAILY 07/26 1000 AC PO Review of Systems Review of Systems: On the complete 12 pt ROS pertinent positives: urinary urgency, some pain in left hip; pertinent negatives: no incontinence, no symptoms affecting right leg, vision language or cognition. no SOB or chest pain, no palpitations. Past History Travel History Traveled to [place] past 21 day No Medical History Neurological: meningitis (as a child) Gastrointestinal: C. diffile colitis Musculoskeletal: fracture (right hip) Psychiatric: anxiety Cancer(s): lung cancer Other Medical Hx: Left lower extremity cellulitis Surgical History Surgical History: appendectomy, pelvic lymph node dissection approximately 50 years ago ventriculoperitoneal shunt placement right upper lobectomy tonsillectomy ORIF for right hip fracture Family History Relations & Conditions If Any: FATHER, , Age 60+; Cause: ASHD (arteriosclerotic heart disease). FH: CAD (coronary artery disease) MOTHER, , Age 60+. Psychosocial History Where Do You Live? Assisted Living Who Do You Live With? self Primary Language: Nepali Smoking Status: Former Smoker (Quit >35 Years Ago) ETOH Use: occasional use (1 glass of wine with dinner) Illicit Drug Use: denies illicit drug use Functional Ability ADLs Independent: dressing, eating, toileting, bathing. Ambulation: cane Employment History Employment: Retired Profession/Employer: Retired Media Aide at [employer] Exam & Diagnostic Data Vital Signs and I&O Vital Signs Date Time Temp Pulse Resp B/P Pulse O2 O2 Flow FiO2 Ox Delivery Rate 07/25 1518 97.4 77 18 121/60 97 Room Air 07/25 0840 98.1 80 20 101/66 96 Room Air Intake & Output 07/25 1600 07/25 0800 07/25 0000 Intake Total Output Total Balance Patient 145 lb Weight Physical Exam: Looks well. no bruits or murmur. 1+ edema only. several bruises. pulses OK BLE alert oriented, language, recall and fund of knowlege intact VFF EOMI, P3ERRL. CN 5-12 normal motor power normal in arms, operator assistant i cementing equal, mild DQ sign on left. LLE minimally weaker on manual testing. tone increased BLE coordination impaired left hand, mild sensation normal BLE and BUE DTRxs symmetric, strong bilateral babinski signs gait testing deferred Last 48 Hours of Lab Results: Laboratory Tests 07/25 1107 Urines Urine Color (YEL,AMB,STR) YEL Urine Clarity (CLEAR) CLEAR Urine pH (5.0 - 8.0) 7.0 Ur Specific Orla (1.001 - 1.035) 1.015 Urine Protein (NEG,<30 MG/DL) NEG Urine Ketones (NEG) NEG Urine Nitrite (NEG) NEG Urine Bilirubin (NEG) NEG Urine Urobilinogen (0.1 - 1.0 EU/dl) 0.2 Ur Leukocyte Esterase (NEG) NEG Ur Microscopic SEDIMENT EXAMINED Urine RBC (0 - 5 /HPF) 3-5 Urine WBC (0 - 2 /HPF) 1-3 H Ur Epithelial Cells (NONE,FEW) RARE Urine Bacteria (NEG/NONE) MOD H Urine Hemoglobin (NEG) TRACE-INTACT Urine Glucose (N MG/DL) NEG 07/25 1035 Chemistry Sodium (137 - 145 mmol/L) 136 L Potassium (3.5 - 5.1 mmol/L) 4.5 Chloride (98 - 107 mmol/L) 100 Carbon Dioxide (22 - 30 mmol/L) 28 Anion Gap (5 - 16) 8 BUN (7 - 17 mg/dL) 33 H Creatinine (0.5 - 1.0 mg/dL) 0.8 Estimated GFR (>60 ml/min) > 60 BUN/Creatinine Ratio (7 - 25 %) 41.3 H Glucose (65 - 99 mg/dL) 94 Calcium (8.4 - 10.2 mg/dL) 9.0 Magnesium (1.6 - 2.3 mg/dL) 2.0 Total Bilirubin (0.2 - 1.3 mg/dL) 1.1 AST (14 - 36 U/L) 24 ALT (9 - 52 U/L) 32 Alkaline Phosphatase (<127 U/L) 60 Total Protein (6.3 - 8.2 g/dL) 6.5 Albumin (3.5 - 5.0 g/dL) 3.8 Globulin (1.9 - 4.2 gm/dL) 2.7 Albumin/Globulin Ratio (1.1 - 2.2 %) 1.4 Hematology CBC w Diff MAN DIFF ORDERED WBC (4.8 - 10.8 /CUMM) 7.7 RBC (4.20 - 5.40 /CUMM) 3.91 L Hgb (12.0 - 16.0 G/DL) 11.9 L Hct (37 - 47 %) 35.8 L MCV (81.0 - 99.0 FL) 91.6 MCH (27.0 - 31.0 PG) 30.4 RDW (11.5 - 14.5 %) 15.1 H Plt Count (130 - 400 /CUMM) 193 MPV (7.4 - 10.4 FL) 6.9 L Gran % (42.2 - 75.2 %) 93.9 H Lymphocytes % (20.5 - 51.1 %) 1.8 L Monocytes % (1.7 - 9.3 %) 4.0 Eosinophils % (0 - 5 %) 0.3 Basophils % (0.0 - 2.0 %) 0 L Absolute Granulocytes (1.4 - 6.5 /CUMM) 7.2 H Absolute Lymphocytes (1.2 - 3.4 /CUMM) 0.1 L Absolute Monocytes (0.10 - 0.60 /CUMM) 0.3 Absolute Eosinophils (0.0 - 0.7 /CUMM) 0 Absolute Basophils (0.0 - 0.2 /CUMM) 0 Platelet Estimate (ADEQUATE) VERIFIED BY SMEAR Normocytic RBCs VERIFIED Normochromic RBCs VERIFIED Anisocytosis 1+ PUBS MCHC (33.0 - 37.0 G/DL) 33.2 Imaging/Other Studies: There is no evidence of acute intracranial hemorrhage or territorial infarction. No abnormal mass effect or midline shift is seen. Campos to white matter differentiation is well preserved. No extra-axial fluid collections are identified. CT Head: The lateral and third ventricles remain significantly dilated out of proportion to the sulcal atrophy with a ventricular shunt in place from a right frontal approach with its tip centrally located. Overall dilatation of the ventricular system appears largely unchanged to the 2011 exam without the shunt in place. There is no abnormal attenuation within the brain parenchyma. The osseous structures and soft tissues are normal. The mastoid air cells and visualized portions of the paranasal sinuses are well aerated. The petrous apices are pneumatized and clear. 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 Assessment/Plan Assessment: Left leg weakness, reported sudden onset about 1 week ago suggesting CVA, minor findings on exam which however could be explained by the right side VPS. some degree of gait instability dates historically from the VPS and the spasticity on exam probably old per history and due to NPH. Recommendations: Despite absence of acute findings on CT would approach as if a CVA with asa, telemetry, carotid dopplers, echo and lipid profile, PT (and OT) evaluations. continue high dose statin. MRI if shunt is MRI safe Consult Acknowledgment - Thank you for your consult request.
--- NOTE | 2016-07-25 21:06 | ULTRASOUND REPORT ---
EXAMINATION: US DUPLEX CAROTID AND VERTEBRAL CLINICAL INFORMATION: 80-year-old female with a history of hydrocephalus status post BREAD SLICER MACHINE shunt presenting with left-sided weakness. COMPARISON: Head CT performed today. TECHNIQUE: Real-time ultrasound and Doppler techniques (integrating B-mode 2D vascular images, Doppler spectral analysis and color flow Doppler imaging) were utilized to interrogate the extracranial carotid and vertebral arteries bilaterally. The degree of stenosis determined by criteria similar to NASCET. FINDINGS: On the RIGHT, there is hard plaque present at the carotid bifurcation. In the distal CCA, the peak systolic velocity is 61 cm/sec. The ICA is completely occluded. In the proximal ECA, the peak systolic velocity is 206 cm/sec. On the LEFT, there is moderate hard significant plaque present at the carotid bifurcation. In the distal CCA, the peak systolic velocity is 113 cm/sec. In the proximal ICA, the peak systolic velocity is 53 cm/sec, and the end diastolic velocity is 14 cm/sec. In the proximal ECA, the peak systolic velocity is 152 cm/sec. The vertebral arteries show antegrade flow with normal waveforms bilaterally. IMPRESSION: 1. 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 2. The left internal carotid artery shows no hemodynamically significant (0-49%) stenosis.
[2016-07-25 22:00] VITALS: BP 160/96
[2016-07-26 08:15] VITALS: BP 122/62
--- NOTE | 2016-07-26 08:19 | PN- Housestaff ---
Subjective Follow-up For: Weakness in left lower extremity Complaints: generalized weakness, feeling lousy Tele-Events Since Last Visit: Normal sinus rhythm, heart rate between 77-88, bundle branch block, PVC Subjective: Patient is seen and examined at the bedside. She was complaining of feeling lousy. She denies any headache, nausea, vomiting, chest pain, new weakness in any part of the body, slurring of his speech, blurring of the vision. Review of Systems Constitutional: Reports: weakness. Cardiovascular: Denies: chest pain. Respiratory: Denies: cough, short of breath. Gastrointestinal: Denies: abdominal pain, bloating, constipation. Genitourinary: Denies: urgency. Neurological/Psychological: Denies: confusion, depressed, dementia, emotional problems, weakness. Objective Last 24 Hrs of Vital Signs/I&O Vital Signs Date Time Temp Pulse Resp B/P Pulse O2 O2 Flow FiO2 Ox Delivery Rate 07/26 0815 98.8 76 18 122/62 94 Room Air 07/25 2200 98.8 80 18 160/96 94 Room Air 07/25 2120 Room Air 07/25 1518 97.4 77 18 121/60 97 Room Air Intake & Output 07/26 1600 07/26 0800 07/26 0000 Intake Total 600 2050 Output Total 400 Balance 600 1650 Intake, IV 400 1200 Intake, Oral 200 850 Number 0 0 Bowel Movements Output, Urine 400 Patient 68.039 kg Weight Physical Exam General Appearance: Alert, Oriented X3, Cooperative, No Acute Distress Skin: areas of ecchymotic patches on left lumber area Cardiovascular: Normal S1, Normal S2 Lungs: Clear to Auscultation, Normal Air Movement Abdomen: Soft, No Tenderness Neurological: Normal Speech, Strength at 5/5 X4 Ext Extremities: No Clubbing, No Cyanosis, No Edema Vascular: Normal Pulses, Pulses Symmetrical Assessment/Plan Assessment: 80 y/o F with PMHx of 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 Hip x-ray was normal. CT scan of the head showed stable hydrocephalus with a new ventricular shunt from a right-sided approach. 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 Plan - Weakness and left lower extremity under evaluation probably CVA or ? shunt blockage * We will continue telemetry monitoring * We will follow neurologist recommendation * Patient had shunt operation at [facility], we will try to call them to know the MRI compatibility of the shunt. * We will continue tablet, aspirin 81 milligrams daily * We will continue tablet atorvastatin 80 milligrams daily * We will follow echocardiogram to rule out cardiac embolization * Neuro check every shift * PT/OT evaluation Incontinence of the urine - * Probably secondary to hydrocephalus * May need evaluation as an outpatient Diet-heart healthy diet DVT prophylaxis-ALP S/heparine CODE STATUS-DNR/DNI Problem List: 1. Left leg weakness 2. Normal pressure hydrocephalus 3. Incontinence of urine Pain Ratin Pain Location: Not applicable Pain Goal: Remain pain free Pain Plan: Mild Tomorrow's Labs & Rationales: not required as the patient is stable
--- NOTE | 2016-07-26 11:59 | PN- Neurology ---
Subjective Subjective: Says the left leg feels a little stronger Onset of leg weakness was sudden a week ago, PCP ordered PT at her [place]. Review of Systems: denies radicular or back pain Objective Vital Signs and I&Os Vital Signs Date Time Temp Pulse Resp B/P Pulse O2 O2 Flow FiO2 Ox Delivery Rate 07/26 0815 98.8 76 18 122/62 94 Room Air 07/25 2200 98.8 80 18 160/96 94 Room Air 07/25 2120 Room Air 07/25 1518 97.4 77 18 121/60 97 Room Air Intake & Output 07/26 1600 07/26 0800 07/26 0000 07/25 1600 07/25 0800 07/25 0000 Intake Total 600 2050 Output Total 400 Balance 600 1650 Intake, IV 400 1200 Intake, Oral 200 850 Number 0 0 Bowel Movements Output, Urine 400 Patient 150 lb 145 lb Weight Physical Exam: Alert, oriented, no confusion or language impairment EOMI, VII, XII normal welder railcar mechanic equal, no drift minimal impairment fine motor control left (non-dominant) hand, may be WMNL 4+/5 LLE bilat Babinski signs Current Medications: Current Medications Sig/Mike Start time Last Medication Dose Route Stop Time Status Admin Acetaminophen 650 MG Q6P PRN 07/25 1500 AC PO Aspirin 0 .STK-MED ONE 07/25 1539 DC PO Aspirin 325 MG DAILY 07/25 1453 AC 07/26 PO 1103 Atorvastatin Calcium 80 MG 1700 07/25 1700 AC 07/25 PO 1753 Calcium/Vitamin D 1 TAB BID 07/25 2200 AC 07/26 PO 1103 Cholecalciferol 2,000 IU DAILY 07/26 1000 AC 07/26 PO 1103 Cyanocobalamin 2,500 MCG DAILY 07/26 1000 AC 07/26 PO 1102 Enoxaparin Sodium 40 MG DAILY 07/26 1000 AC 07/26 SC 1102 Lactobacillus 1 CAP DAILY 07/26 1000 AC 07/26 Acidophilus PO 1103 Multivitamins 1 TAB DAILY 07/26 1000 AC 07/26 Therapeutic PO 1103 Patient Medication 1 UNIT ONE NR 07/25 1615 DC Teaching ED 07/25 1630 Sodium Chloride 1,000 ML ONCE ONE 07/25 1545 DC 07/25 IV 07/26 0504 1603 Sodium Chloride 1,000 ML BOLUS ONE 07/25 1315 DC 07/25 IV 07/25 1414 1359 Vitamin E 400 IU DAILY 07/26 1000 AC 07/26 PO 1102 Results Recent Imaging Studies: Dopplers: IMPRESSION: 1. 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 2. The left internal carotid artery shows no hemodynamically significant 3. 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 Other cerebral vessels OK Plan: ASA has been added continue statin risk factors for CVA discussed at length with patient Echocardiogram - r/o any potential source of cardioembolism keep on telemetry while here still awaiting whether can undergo MRI PT If stable another day could be considered for early return to her AL with PT there
--- NOTE | 2016-07-26 12:42 | PN- Att Addend ---
Attending Addendum Attending Brief Note Patient seen and examined. Sitting comfortably in bed. Does not complain of any new weakness, vision disturbance or speech difficulty. Feels tired. 80-year-old female with history of lymphoma status post local resection 30 years ago, lung cancer status post lobectomy, spinal meningitis and normal pressure hydrocephalus status post shunt placement was admitted yesterday with lower extremity weakness and falls. Her vitals are stable. No events noted on telemetry . Other than few PVCs .She is alert, oriented 3 speech is clear. Handgrips are equal both sides. Power 4/ 5 left lower extremity. No new labs checked today. Carotid Doppler done last evening shows complete occlusion of right carotid artery. Patient has been evaluated by neurologist. The recommendation is to get MRI head. Patient has shunts in her brain because of history of normal pressure hydrocephalus. We'll have to find out if this shunts are MRI compatible. For now will continue aspirin, statin and physical therapy. Follow-up echo results.
[2016-07-26 15:48] VITALS: BP 118/74
--- NOTE | 2016-07-26 21:20 | Event Note ---
Event Note Event Note: Late documentation of my conversation with patient. The patient had the Right Ventriculoperitoneal Shunts [place] [address]ner. The operative report was reviewed in x.aiem but no idemtfiication of the typr of shunt used duering the IC surgery. A call to [facility] was also placed but Dr Garner was not reached due to weekend. The son said he will try calling himself and would get back to us if we know the MRI comaptability of the shunt. To be noted no record of any MRI being performed as found in the [employer] EMR.
[2016-07-27 00:07] VITALS: BP 130/64
[2016-07-27 07:48] VITALS: BP 120/66
--- NOTE | 2016-07-27 08:59 | PN- Housestaff ---
SERGIO FIGUEROA 07/27/16 0858: Subjective Follow-up For: -Gait instability TIA Complaints: no complaints Tele-Events Since Last Visit: Normal sinus rhythm, bundle branch block, 66-75. Subjective: The patient was comfortable this morning. Did not have any complaints. Vitals were stable overnight. She was afebrile. Called the patient's son, if he spoke to Dr. Garner about the LICENSED INVESTMENT SALES ASSISTANT shunt (stent ). So far, no information was obtained. Discussed with Dr. Lagunas, was of the opinion that CT scan was adequate to make this diagnosis and MRI was not absolutely warranted in this case. Could possibly discharge the patient in the a.m., once a bed becomes available in the short-term rehabilitation. Review of Systems Constitutional: Reports: see HPI. Objective Last 24 Hrs of Vital Signs/I&O Vital Signs Date Time Temp Pulse Resp B/P Pulse O2 O2 Flow FiO2 Ox Delivery Rate 07/27 0748 97.3 70 20 120/66 95 07/27 0007 98.8 72 18 130/64 96 Room Air 07/26 1600 Room Air 07/26 1548 98.7 72 18 118/74 96 Room Air Intake & Output 07/27 1600 07/27 0800 07/27 0000 Intake Total 250 650 Output Total Balance 250 650 Intake, IV 0 0 Intake, Oral 250 650 Number 3 3 Bowel Movements Physical Exam General Appearance: No Acute Distress Other Physical Findings: General Exam: AAOx3, No acute distress, Skin: No rashes, no breakdown HEENT: PERRLA, EOMI Neck: Supple, No JVD No cervical lymphadenopathy CVS: Reg Rate, Normal S1,S2, systolic murmur 3/6. Resp: Normal air entry, no ronchi/rales Abdomen: Soft, No tenderness, Normal Bowel Sounds Neuro: Normal Speech, Strength 5/5 b/l x 4 extremities, Sensation intact, CN III -XII NL, Reflexes 2+ Extremities: No cyanosis, pedal edema Current Medications: Current Medications Sig/Mike Start time Last Medication Dose Route Stop Time Status Admin Acetaminophen 650 MG Q6P PRN 07/25 1500 AC PO Aspirin 325 MG DAILY 07/25 1453 AC 07/26 PO 1103 Atorvastatin Calcium 80 MG 1700 07/25 1700 AC 07/26 PO 1614 Calcium/Vitamin D 1 TAB BID 07/25 2200 AC 07/26 PO 2048 Cholecalciferol 2,000 IU DAILY 07/26 1000 AC 07/26 PO 1103 Cyanocobalamin 2,500 MCG DAILY 07/26 1000 AC 07/26 PO 1102 Enoxaparin Sodium 40 MG DAILY 07/26 1000 AC 07/26 SC 1102 Lactobacillus 1 CAP DAILY 07/26 1000 AC 07/26 Acidophilus PO 1103 Multivitamins 1 TAB DAILY 07/26 1000 AC 07/26 Therapeutic PO 1103 Vitamin E 400 IU DAILY 07/26 1000 AC 07/26 PO 1102 Last 24 Hrs of Lab/Agapito Results Last 24 Hrs of Labs/Mics: Microbiology 07/27 0721 STOOL: Stool Culture - RECD Assessment/Plan Assessment: 80 y/o F with PMHx of normal pressure hydrocephalus s/p ventriculoperitoneal shunt placement, remote history of lymphoma, squamous cell carcinoma of the lung s/p right upper lobectomy who presents from [facility] with worsening gait instability and new-onset of left leg weakness x1 week. Hip x-ray was normal. CT scan of the head showed stable hydrocephalus with a new ventricular shunt from a right-sided approach. 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 Plan - Weakness and left lower extremity under evaluation probably CVA or ? shunt blockage * We will continue telemetry monitoring * We will follow neurologist recommendation * Patient had shunt operation at [facility], we will try to call them to know the MRI compatibility of the shunt. * We will continue tablet, aspirin 81 milligrams daily * We will continue tablet atorvastatin 80 milligrams daily * We will follow echocardiogram to rule out cardiac embolization * Neuro check every shift * PT/OT evaluation Incontinence of the urine - * Probably secondary to hydrocephalus * May need evaluation as an outpatient Diarrhea- * Diet-heart healthy diet DVT prophylaxis-ALP S/heparine CODE STATUS-DNR/DNI Problem List: 1. Incontinence of urine Pain Ratin Pain Location: back Pain Goal: Pain 4 or less Pain Plan: tylenol prn Tomorrow's Labs & Rationales: bep nicole BATISTA MD,[facility] 07/27/16 1135: Attending MD Review Statement Attending Statement Attending MD Statement: examined this patient, discuss w/resident/PA/MEAT SUPERVISOR, agreed w/resident/PA/MEAT SUPERVISOR, discussed with family, reviewed EMR data (avail), discussed with nursing, discussed with case mgmt, reviewed images, amended to note Attending Assessment/Plan: Sitting comfortably in bed. She had diarrhea all night and is feeling very tired as she did not get good night sleep. Her stool was sent for culture, his make sure C. difficile sent. We do not have any information on the stent yet. Patient is already on CVA treatment. Please run through neurology if MRI can be done as an outpatient, if we are unable to get any information on her stents over the weekend. Follow-up Echo results.
[2016-07-27 16:00] VITALS: BP 126/70
[2016-07-28 00:24] VITALS: BP 130/70
--- NOTE | 2016-07-28 06:26 | PN- Housestaff ---
See Addendum JIGNA DIAZ,IVETH 07/28/16 0626: Subjective Follow-up For: Gait instability TIA work up Tele-Events Since Last Visit: NSR with BBB, HR 60-70s Subjective: Patient seen and examined at [facility]. She offers no complaints this morning. She feels like she's gaining her strength back, up to 70% today. She would like to undergo more rehab to get stronger. Denies any chest pain, dyspnea, palpitations , abdominal pain, f/c, c/d/v/d, headache, dizziness. No events reported overnight. Review of Systems Constitutional: Reports: see HPI. Objective Last 24 Hrs of Vital Signs/I&O Vital Signs Date Time Temp Pulse Resp B/P Pulse O2 O2 Flow FiO2 Ox Delivery Rate 07/28 0810 Room Air 07/28 0024 98.4 73 20 130/70 94 Room Air 07/27 1600 98.0 77 20 126/70 96 Room Air Intake & Output 07/28 1600 07/28 0800 07/28 0000 Intake Total 400 640 Output Total 775 Balance -375 640 Intake, Oral 400 640 Number 2 Bowel Movements Output, Urine 775 Physical Exam General Appearance: Alert, Oriented X3, Cooperative, No Acute Distress Other Physical Findings: Skin No Rashes HEENT Atraumatic, Mucous Membr. moist/pink Neck Supple, +2 Carotid Pulse wo Bruit Cardiovascular Regular Rate, Normal S1, Normal S2 Lungs Clear to Auscultation Abdomen Soft, No Tenderness, Positive Bowel Sounds Neurological Normal Speech, Sensation Intact, Cranial Nerves 3-12 NL, Strength 4 -5 out of 5 in all extremeties Extremities No Clubbing, No Cyanosis, 1+ Edema on Bilateral Lower Extremities Current Medications: Current Medications Sig/Mike Start time Last Medication Dose Route Stop Time Status Admin Acetaminophen 650 MG Q6P PRN 07/25 1500 AC PO Aspirin 325 MG DAILY 07/25 1453 AC 07/27 PO 0941 Atorvastatin Calcium 80 MG 1700 07/25 1700 AC 07/27 PO 1602 Calcium/Vitamin D 1 TAB BID 07/25 2200 AC 07/27 PO 205 Cholecalciferol 2,000 IU DAILY 07/26 1000 AC 07/27 PO 0941 Cyanocobalamin 2,500 MCG DAILY 07/26 1000 AC 07/27 PO 0941 Enoxaparin Sodium 40 MG DAILY 07/26 1000 AC 07/27 SC 0940 Lactobacillus 1 CAP DAILY 07/26 1000 AC 07/27 Acidophilus PO 0941 Multivitamins 1 TAB DAILY 07/26 1000 AC 07/27 Therapeutic PO 0941 Vitamin E 400 IU DAILY 07/26 1000 AC 07/27 PO 0941 Last 24 Hrs of Lab/Agapito Results Last 24 Hrs of Labs/Mics: Laboratory Tests 07/28/16 0620: Anion Gap 5, Estimated GFR > 60, BUN/Creatinine Ratio 23.3, CBC w Diff NO MAN DIFF REQ, RBC 3.56 L, MCV 91.6, MCH 30.5, RDW 14.6 H, MPV 7.3 L, Gran % 61.7, Lymphocytes % 19.7 L, Monocytes % 14.4 H, Eosinophils % 3.9, Basophils % 0.3, Absolute Granulocytes 2.7, Absolute Lymphocytes 0.9 L, Absolute Monocytes 0.6, Absolute Eosinophils 0.2, Absolute Basophils 0, PUBS MCHC 33.3 Assessment/Plan Assessment: 80 y/o F with PMHx of normal pressure hydrocephalus s/p ventriculoperitoneal shunt placement, remote history of lymphoma, 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 Hip x-ray was normal. CT scan of the head showed stable hydrocephalus with a new ventricular shunt from a right-sided approach. 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 # Weakness and left lower extremity under evaluation probably CVA or ? shunt blockage Patient had shunt operation at [facility]. We will try to call Dr. Garner's office to find out the MRI compatibility of the shunt. As per previous records regarding discussion with Dr. Lagunas, CT scan is adequate to make this diagnosis and MRI is not absolutely warranted at this point. Plans for possible discharge to [facility] today. * Continue telemetry monitoring * Appreciate neurologist recommendation * Continue tablet, aspirin 81 milligrams daily * Continue tablet atorvastatin 80 milligrams daily * Follow echocardiogram to rule out cardiac embolization * Neuro check every shift * PT/OT evaluation # Urinary incontinence Most likely secondary to hydrocephalus * May need evaluation as an outpatient Diet-heart healthy diet DVT prophylaxis-ALP S/heparine CODE STATUS-DNR/DNI Problem List: 1. Appendectomy 2. H/O C.DIFF COLITIS 3. HIP FRACTURE S/P ORIF 4. LYMPHOMA 5. MENINGITIS 6. RECURRENT FALLS 7. S/P FALL WITH MILD RHABDO 8. SQ CELL CA LUNG S/P LOBECTOMY 9. Tonsillectomy 10. Edema 11. Cellulitis 12. Cellulitis 13. Dependent edema 14. Chest pain 15. Vomiting alone 16. Left-sided muscle weakness 17. Gait disturbance 18. Frequent falls 19. Dehydration 20. Normal pressure hydrocephalus 21. Left leg weakness 22. Incontinence of urine Pain Ratin Pain Location: 0 Pain Goal: Remain pain free Pain Plan: Mild pathway Tomorrow's Labs & Rationales: None NICKTRINA Pantoja 07/28/16 1057: Attending MD Review Statement Attending Statement Attending MD Statement: examined this patient, discuss w/resident/PA/DEBRIDGING MACHINE OPERATOR, agreed w/resident/PA/DEBRIDGING MACHINE OPERATOR, discussed with family, reviewed EMR data (avail), discussed with nursing, discussed with case mgmt, reviewed images Attending Assessment/Plan: Sitting comfortably in bed. Neurology recommend MRI of shunt compatible with MRI for eval of CVA. Neurosurgery ok with MRI, family requesting MRI to be done inpatient. Follow-up results and patient can be discharged today on antiplatleet therapy, statin , follow PT recommendations. gi/dvt prophyalxis
--- NOTE | 2016-07-28 07:51 | Patient Discharge Instructions ---
Discharge Instructions General Discharge Information You were seen/treated for: generalized weakness Special Instructions: Please follow up with your primary care physician and neurologist (Dr. Lagunas) within 1 week of discharge. Please discuss with Dr. Lagunas regarding the need for further testing with MRI. Of note, we checked with your neurosurgeon Dr. Garner and confirmed that your CELL BUILDER shunt is MRI compatible. Please follow up with vascular surgeon (Dr. Vinay Gallagher) if you have persistent or worsening weakness, confusion, slurred speech. Diet Continue normal diet: Yes Activity Full Activity/No Limits: Yes Acute Coronary Syndrome Inclusion Criteria At DC or during hospital stay patient has or had the following: ACS DIAGNOSIS No Discharge Core Measures Meds if any: Prescribed or Continued at Discharge Meds if any: NOT Prescribed or Continued at Discharge Congestive Heart Failure Inclusion Criteria At DC or during hospital stay patient has or had the following: CHF DIAGNOSIS No Discharge Core Measures Meds if any: Prescribed or Continued at Discharge Meds if any: NOT Prescribed or Continued at Discharge Cerebrovascular accident Inclusion Criteria At DC or during hospital stay patient has or had the following: CVA/TIA Diagnosis Yes (Suspected) Discharge Core Measures Meds if any: Prescribed or Continued at Discharge Meds if any: NOT Prescribed or Continued at Discharge Venous thromboembolism Inclusion Criteria VTE Diagnosis No VTE Type NONE VTE Confirmed by (Test) NONE Discharge Core Measures - Per Current guidelines, there needs to be overlap - treatment for the first 5 days of Warfarin therapy. - If discharged on Warfarin prior to 5 days of - overlap therapy, the patient will need to be - assessed for post discharge needs including - *Post discharge parental anticoagulation - *Warfarin and/or parental anticoagulation education - *Follow up date to check INR post discharge At least 5 days overlap therapy as Inpatient No Meds if any: Prescribed or Continued at Discharge Note: Overlap Therapy is Warfarin and Anticoagulant Meds if any: NOT Prescribed or Continued at Discharge
[2016-07-28 07:53] LABS: ABSOLUTE BASOPHIL COUNT 0 /CUMM (0.0-0.2); ABSOLUTE EOSINOPHIL COUNT 0.2 /CUMM (0.0-0.7); ABSOLUTE GRANULOCYTE CT 2.7 /CUMM (1.4-6.5); ABSOLUTE LYMPH COUNT 0.9 /CUMM (1.2-3.4); ABSOLUTE MONOCYTE COUNT 0.6 /CUMM (0.10-0.60); BASOPHIL % 0.3 % (0.0-2.0); EOSINOPHIL % 3.9 % (0-5); GRANULOCYTE % 61.7 % (42.2-75.2); HEMATOCRIT 32.5 % (37-47); MEAN CORPUSCULAR HGB 30.5 PG (27.0-31.0); MEAN CORPUSCULAR HGB CONC 33.3 G/DL (33.0-37.0); MEAN CORPUSCULAR VOLUME 91.6 FL (81.0-99.0); MEAN PLATELET VOLUME 7.3 FL (7.4-10.4); PLATELET COUNT 165 /CUMM (130-400); RBC DISTRIBUTION WIDTH 14.6 % (11.5-14.5); RED BLOOD CELL CT 3.56 /CUMM (4.20-5.40); WHITE BLOOD CELL COUNT 4.4 /CUMM (4.8-10.8)
--- NOTE | 2016-07-28 08:04 | Discharge Summary ---
See Addendum Visit Information Visit Dates Admission Date: 07/25/16 Discharge Date: 07/28/2016 Hospital Course Course Attending Physician: TRINA ROMERO MD Primary Care Physician: CARLA LYNN MD Consulting Request: Consulting Specialty: Neurology Consulting Physician: Dr. Lagunas Reason for Consult: Gait instability and left lower limb weakness Hospital Course: 80 YO F with PMHx of normal pressure hydrocephalus s/p ventriculoperitoneal shunt placement, remote history of lymphoma, squamous cell carcinoma of the lung s/p right upper lobectomy who presents from [facility] with worsening gait instability and new-onset of left leg weakness x1 week. Patient was admitted to the telemetry floor and he managed her for the following conditions. Weakness of the left lower extremity to rule out CVA Initial workup hip x-ray did not show any fractures, CT of the head showed stable hydrocephalus with a new ventricular shunt from a right-sided approach. 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 Patient was put on neuro checks and she passed bedside swallow evaluation. Prior TIA/CVA protocol the patient was started on aspirin, atorvastatin and was planned to have an echocardiogram. The patient was reviewed by neurologist Dr. Lagunas who requested MRI of the head which is shunt compatible. Per neurologist recommendation the patient can be discharged to have an MRI as an outpatient if clinically improved. Urine incontinence Patient presented with urinary incontinence. Patient is been discharged with instruction to follow up with neurologist as an outpatient. Complications: None Allergies: Coded Allergies: Penicillins (Intermediate, HIVES 07/25/16) Significant Procedures: Carotid doppler: 1. 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 2. The left internal carotid artery shows no hemodynamically significant (0-49%) stenosis. Echo: Normal left ventricular size, wall thickness and systolic function with no obvious regional wall motion abnormalities. Normal left ventricular diastolic filling pattern for age. The ejection fraction is visually estimated at 70%. Pertinent Lab Results: Laboratory Tests 07/28 07/25 0620 1107 Chemistry Sodium Pending Potassium Pending Chloride Pending Carbon Dioxide Pending Anion Gap Pending BUN Pending Creatinine Pending BUN/Creatinine Ratio Pending Hematology CBC w Diff Pending WBC Pending RBC Pending Hgb Pending Hct Pending MCV Pending MCH Pending RDW Pending Plt Count Pending MPV Pending PUBS MCHC Pending Urines Urine Color (YEL,AMB,STR) YEL Urine Clarity (CLEAR) CLEAR Urine pH (5.0 - 8.0) 7.0 Ur Specific [place] (1.001 - 1.035) 1.015 Urine Protein (NEG,<30 MG/DL) NEG Urine Ketones (NEG) NEG Urine Nitrite (NEG) NEG Urine Bilirubin (NEG) NEG Urine Urobilinogen (0.1 - 1.0 EU/dl) 0.2 Ur Leukocyte Esterase (NEG) NEG Ur Microscopic SEDIMENT EXAMINED Urine RBC (0 - 5 /HPF) 3-5 Urine WBC (0 - 2 /HPF) 1-3 H Ur Epithelial Cells (NONE,FEW) RARE Urine Bacteria (NEG/NONE) MOD H Urine Hemoglobin (NEG) TRACE-INTACT Urine Glucose (N MG/DL) NEG 07/25 1035 Chemistry Sodium (137 - 145 mmol/L) 136 L Potassium (3.5 - 5.1 mmol/L) 4.5 Chloride (98 - 107 mmol/L) 100 Carbon Dioxide (22 - 30 mmol/L) 28 Anion Gap (5 - 16) 8 BUN (7 - 17 mg/dL) 33 H Creatinine (0.5 - 1.0 mg/dL) 0.8 Estimated GFR (>60 ml/min) > 60 BUN/Creatinine Ratio (7 - 25 %) 41.3 H Glucose (65 - 99 mg/dL) 94 Calcium (8.4 - 10.2 mg/dL) 9.0 Magnesium (1.6 - 2.3 mg/dL) 2.0 Total Bilirubin (0.2 - 1.3 mg/dL) 1.1 AST (14 - 36 U/L) 24 ALT (9 - 52 U/L) 32 Alkaline Phosphatase (<127 U/L) 60 Total Protein (6.3 - 8.2 g/dL) 6.5 Albumin (3.5 - 5.0 g/dL) 3.8 Globulin (1.9 - 4.2 gm/dL) 2.7 Albumin/Globulin Ratio (1.1 - 2.2 %) 1.4 Triglycerides (<150 mg/dL) 43 Cholesterol (<200 MG/DL) 176 LDL Cholesterol, Calc (65 - 129 mg/dL) 72 HDL Cholesterol (40 - 60 mg/dL) 96 H Cholesterol/HDL Ratio (0.00 - 4.23 %) 2 Hematology CBC w Diff MAN DIFF ORDERED WBC (4.8 - 10.8 /CUMM) 7.7 RBC (4.20 - 5.40 /CUMM) 3.91 L Hgb (12.0 - 16.0 G/DL) 11.9 L Hct (37 - 47 %) 35.8 L MCV (81.0 - 99.0 FL) 91.6 MCH (27.0 - 31.0 PG) 30.4 RDW (11.5 - 14.5 %) 15.1 H Plt Count (130 - 400 /CUMM) 193 MPV (7.4 - 10.4 FL) 6.9 L Gran % (42.2 - 75.2 %) 93.9 H Lymphocytes % (20.5 - 51.1 %) 1.8 L Monocytes % (1.7 - 9.3 %) 4.0 Eosinophils % (0 - 5 %) 0.3 Basophils % (0.0 - 2.0 %) 0 L Absolute Granulocytes (1.4 - 6.5 /CUMM) 7.2 H Absolute Lymphocytes (1.2 - 3.4 /CUMM) 0.1 L Absolute Monocytes (0.10 - 0.60 /CUMM) 0.3 Absolute Eosinophils (0.0 - 0.7 /CUMM) 0 Absolute Basophils (0.0 - 0.2 /CUMM) 0 Platelet Estimate (ADEQUATE) VERIFIED BY SMEAR Normocytic RBCs VERIFIED Normochromic RBCs VERIFIED Anisocytosis 1+ PUBS MCHC (33.0 - 37.0 G/DL) 33.2 Disposition Summary Disposition Principal Diagnosis: Left lower limb weakness Hydrocephalus with BUCKLE ASSEMBLER shunt Additional Diagnosis: Urine incontinence Discharge Disposition: SNF Discharge Instructions General Discharge Information Code Status: Do Not Resucitate/Intubat Patient's Diet: Heart PlayyOn diet Patient's Activity: As tolerated Follow-Up Instructions/Appts: Please call and make a follow-up with your primary care physician within one week after discharge Please call and make a follow-up with urologist Dr. Fowler within 1 month after discharge Medications at Discharge Discharge Medications: Continue taking these medications: Vitamin E (Dl,Tocopheryl Acet) (Vitamin E) 400 UNIT CAPSULE 3 SGL ORAL DAILY Comments: Last Taken: 07/28/16 Time: 9AM Calcium Carb & Citrate/Vit D3 (Calcium + D3 ER Tablet) 600 MG CALCIUM-500 UNIT TABLET.ER 1 Tablet ORAL TWICE DAILY Comments: Last Taken: 07/28/16 Time: 9AM Bacillus Coagulans/Inulin (Probiotic Formula Capsule) 1 BILLION CELL-250 MG CAPSULE 1 Capsule ORAL DAILY Comments: Last Taken: 07/28/16 Time: 9AM [place]-3 Acid Ethyl Esters ([place]-3 Acid Ethyl Esters) 1 GM CAPSULE 2 Capsule ORAL DAILY Comments: NOT GIVEN IN HOSPITAL Cholecalciferol (Vitamin D3) (Vitamin D-3) 2,000 UNIT TABLET 1 Tablet ORAL DAILY Comments: Last Taken: 07/28/16 Time: 9AM Multivitamin (Daily Multiple Vitamin) 1 EACH TABLET 1 Tablet ORAL DAILY Comments: Last Taken: 07/28/16 Time: 9AM Cyanocobalamin (Vitamin B-12) (Vitamin B12) 2,500 MCG TABLET 1 Tablet ORAL DAILY Comments: Last Taken: 07/28/16 Time: 9AM Ondansetron (Zofran Odt) 4 MG TAB.RAPDIS 1 Tablet SUBLINGUAL THREE TIMES DAILY as needed for nausea/vomiting Qty = 15 Comments: NOT GIVEN IN HOSPITAL Start taking the following new medications: Atorvastatin Calcium (Atorvastatin Calcium) 80 MG TABLET 80 Milligram ORAL 5 PM Qty = 30 No Refills Comments: Last Taken: 07/28/16 Time: 4PM Aspirin (Aspirin*) 325 MG TABLET 325 Milligram ORAL DAILY Qty = 30 No Refills Comments: NOT GIVEN IN HOSPITAL Copies To: ANETA DIAZ,YOSEF; FIFI DIAZ,SRI Varela; SHANE DIAZ,CARLA Gottlieb Attending MD Review Statement Documenting Attending: TRINA ROMERO MD Other Findings: Patient MRI was not done and patient says I dont want anymore as I have to stay till thursday. Neurology already confirmed MRI will not change course of treatment. Vascular surgery consulted did not recommend surgery as 100% stenosis on right, no intervention needed on left carotid. Patient and family in agreement. Patient discharged in stable condition to rehab.
[2016-07-28 08:59] VITALS: BP 152/88
--- NOTE | 2016-07-28 09:45 | Event Note ---
Event Note Event Note: At 9:40AM this morning I received a call from Dr. Garner, the neurosurgeon who placed a MAP MOUNTER shunt in the patient Ms. Monica Lopez. He confirmed that the shunt he used for the patient is MRI compatible as he only uses plastic shunts.
--- NOTE | 2016-07-28 13:16 | ECHOCARDIOGRAM REPORT ---
HERIBERTO AGUILAR Age: 80 : 1935 Gender: F Exam Date: 07/27/2016 13:51 Exam Location: 1 [facility] Ht (in): 68 Wt (lb): 150 BSA: 1.81 BP: 120 / 66 Ordering Physician: KAREN BRAXTON MD Referring Physician: KAREN BRAXTON MD Technologist: Zakia Carlton MAYNOR Room Number: 176 Indications: TIA Rhythm: Sinus Technical Quality: good FINDINGS Left Ventricle Normal left ventricular size, wall thickness and systolic function with no obvious regional wall motion abnormalities. Normal left ventricular diastolic filling pattern for age. The ejection fraction is visually estimated at 70%. Right Ventricle The right ventricle is normal in size and function. Right Atrium The right atrium is normal in size. Left Atrium The left atrium is normal in size. The interatrial septum is intact. Mitral Valve The mitral valve is normal in structure and function. There is mild mitral regurgitation. Aortic Valve Structurally normal aortic valve without significant sclerosis or stenosis. There is mild aortic regurgitation. Tricuspid Valve The tricuspid valve is normal in structure and function. There is trace to mild tricuspid regurgitation. Pulmonary artery systolic pressure is normal. Pulmonic Valve Structurally normal pulmonic valve. There is mild pulmonic regurgitation. Pericardium Normal pericardium without effusion. No pleural effusion. Great Vessels Normal aortic root dimension. The aortic arch and great vessels are well seen and are normal. CONCLUSIONS 1. Normal EF of 70%. 2. Mild mitral regurgitation. 3. Trace to mild tricuspid regurgitation. 4. Mild aortic regurgitation. 5. Mild pulmonic regurgitation. Geovanni Butler M.D. (Electronically Signed) Final Date: 28 July 2016 13:15 MEASUREMENTS (Male / Female) Normal Values 2D ECHO LV Diastolic Diameter PLAX 5.1 cm 4.2 - 5.9 / 3.9 - 5.3 cm LV Systolic Diameter PLAX 2.8 cm 2.1 - 4.0 cm LV Fractional Shortening PLAX 45.9 % 25 - 46 % LV Ejection Fraction 2D Teich 77.0 % IVS Diastolic Thickness 1.0 cm LVPW Diastolic Thickness 1.0 cm LV Relative Wall Thickness 0.4 RV Internal Dim ED PLAX 2.7 cm 1.9 - 3.8 cm LVOT Diameter 2.0 cm Aortic Root Diameter 3.3 cm LA Systolic Diameter LX 3.0 cm 3.0 - 4.0 / 2.7 - 3.8 cm LA Volume 34.0 cm 18 - 58 / 22 - 52 cm Ascending Aorta Diameter 3.7 cm DOPPLER AV Peak Velocity 143.0 cm/s AV Peak Gradient 8.2 mmHg AV Mean Velocity 99.1 cm/s AV Mean Gradient 4.0 mmHg AV Velocity Time Integral 31.7 cm LVOT Peak Velocity 129.0 cm/s LVOT Peak Gradient 6.7 mmHg LVOT Mean Velocity 81.8 cm/s LVOT Mean Gradient 3.0 mmHg LVOT Velocity Time Integral 29.6 cm LVOT Stroke Volume 93.0 cm AV Area Cont Eq vti 2.9 cm AV Area Cont Eq pk 2.8 cm MV Peak Velocity 91.8 cm/s MV Peak Gradient 3.4 mmHg MV Mean Velocity 50.9 cm/s MV Mean Gradient 1.0 mmHg Mitral E Point Velocity 76.0 cm/s Mitral A Point Velocity 87.9 cm/s Mitral E to A Ratio 0.9 MV PHT Velocity 82.2 cm/s MV Deceleration [place] 497.0 cm/s MV Pressure Half Time 49.6 ms MV Area PHT 4.4 cm MV Deceleration Time 209.0 ms TV Peak Velocity 166.0 cm/s TR Peak Velocity 220.3 cm/s TR Peak Gradient 19.4 mmHg Right Atrial Pressure 5.0 mmHg Pulmonary Artery Systolic Pressu 24.4 mmHg Right Ventricular Systolic Press 24.4 mmHg PV Peak Velocity 74.4 cm/s PV Peak Gradient 2.2 mmHg PV Mean Velocity 53.8 cm/s PV Mean Gradient 1.0 mmHg PV Velocity Time Integral 15.9 cm LV E' Lateral Velocity 9.2 cm/s Mitral E to LV E' Lateral Ratio 8.3 LV E' Septal Velocity 7.2 cm/s Mitral E to LV E' Septal Ratio 10.5
--- NOTE | 2016-07-28 13:48 | Cons- Vascular Surgery ---
General Information and HPI Consulting Request Date of Consult: 07/28/16 Requested By: Dr Rebeca Flores Reason for Consult: Assess need for vascular surgical intervention for carotid occlusion Source of Information: patient, family, old records Exam Limitations: no limitations History of Present Illness: 80-year-old female admitted to the hospitalist service on 07/25/16 for left sided leg weakness for approximately 1 week in duration which is getting worse and affecting patient's ability to ambulate and some mild coordination defects suggestive of stroke. She has a history of normal pressure hydrocephalus and has a TERRAZZO HELPER shunt placed. Her CT scan of her head was unremarkable. Patient was complaining of right-sided intermittent sharp temporal head pain as well. 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 Vascular surgery was consultative to assess need for surgical intervention/carotid endarterectomy regarding her right internal carotid 100% occlusion. Patient was seen and evaluated and is sitting in the bed offering no complaints at this time. She states that her left leg strength is much improved today, she walked 60 feet, her crenation it has improved, she has no headaches, no visual changes, no speech difficulty. Allergies/Medications Allergies: Coded Allergies: Penicillins (Intermediate, HIVES 07/25/16) Home Med List: Bacillus Coagulans/Inulin (Probiotic Formula Capsule) 1 BILLION CELL-250 MG CAPSULE 1 CAP PO DAILY SUPPLEMENT (Reported) Calcium Carb & Citrate/Vit D3 (Calcium + D3 ER Tablet) 600 MG CALCIUM-500 UNIT TABLET.ER 1 TAB PO BID SUPPLEMENT (Reported) Cholecalciferol (Vitamin D3) (Vitamin D-3) 2,000 UNIT TABLET 1 TAB PO DAILY VITAMIN SUPPORT (Reported) Cyanocobalamin (Vitamin B-12) (Vitamin B12) 2,500 MCG TABLET 1 TAB PO DAILY VITAMIN SUPPORT (Reported) Multivitamin (Daily Multiple Vitamin) 1 EACH TABLET 1 TAB PO DAILY VITAMIN SUPPORT (Reported) [place]-3 Acid Ethyl Esters 1 GM CAPSULE 2 CAP PO DAILY VITAMIN SUPPORT ( Reported) Ondansetron (Zofran Odt) 4 MG TAB.RAPDIS 1 TAB SL TID PRN nausea/vomiting Vitamin E (Dl,Tocopheryl Acet) (Vitamin E) 400 UNIT CAPSULE 3 SGL PO DAILY SUPPLEMENT (Reported) Current Medications: Current Medications Sig/Mike Start time Last Medication Dose Route Stop Time Status Admin Acetaminophen 650 MG Q6P PRN 07/25 1500 AC PO Aspirin 325 MG DAILY 07/25 1453 AC 07/28 PO 0932 Atorvastatin Calcium 80 MG 1700 07/25 1700 AC 07/27 PO 1602 Calcium/Vitamin D 1 TAB BID 07/25 2200 AC 07/28 PO 0932 Cholecalciferol 2,000 IU DAILY 07/26 1000 AC 07/28 PO 0932 Cyanocobalamin 2,500 MCG DAILY 07/26 1000 AC 07/28 PO 0932 Enoxaparin Sodium 40 MG DAILY 07/26 1000 AC 07/28 SC 0932 Lactobacillus 1 CAP DAILY 07/26 1000 AC 07/28 Acidophilus PO 0932 Multivitamins 1 TAB DAILY 07/26 1000 AC 07/28 Therapeutic PO 0932 Potassium Chloride 40 MEQ ONCE ONE 07/28 0945 DC 07/28 PO 07/28 0946 0939 Vitamin E 400 IU DAILY 07/26 1000 AC 07/28 PO 0932 Past History Medical History Blood Transfusion Hx: No Neurological: meningitis (as a child), normal pressure hydrocephalus EENT: NONE Cardiovascular: NONE Respiratory: NONE Gastrointestinal: C. diffile colitis Hepatic: NONE Renal: NONE Musculoskeletal: fracture (right hip) Psychiatric: anxiety Endocrine: NONE Blood Disorders: NONE Cancer(s): lung cancer, lymphoma (remote history) HOOP RIVETER/Reproductive: NONE Other Medical Hx: Left lower extremity cellulitis Surgical History Pertinent Surgical History: appendectomy, pelvic lymph node dissection approximately 50 years ago ventriculoperitoneal shunt placement right upper lobectomy tonsillectomy ORIF for right hip fracture Family History Relations & Conditions If Any: FATHER, , Age 60+; Cause: ASHD (arteriosclerotic heart disease). FH: CAD (coronary artery disease) MOTHER, , Age 60+. Psychosocial History Where Do You Live? Assisted Living Who Do You Live With? self Primary Language: Amharic Smoking Status: Former Smoker (Quit >35 Years Ago) ETOH Use: occasional use (1 glass of wine with dinner) Illicit Drug Use: denies illicit drug use Functional Ability ADLs Independent: dressing, eating, toileting, bathing. Ambulation: cane Employment History Employment: Retired Profession/Employer: Retired Media Aide at [employer] Review of Systems Review of Systems: Review of systems: See HPI, all other systems negative. Constitutional: No chills fever or weight loss HEENT: No visual changes no sore throat no congestion Cardiovascular: No chest pain ,palpitation , orthopnea or ankle swelling Skin: No jaundice no rashes Respiratory: No dyspnea cough sputum or hemoptysis GI: No nausea no vomiting : No dysuria no hematuria Musclulo skeletal: No back pain no neck pain, Neurologic: see HPI Psych: No stress anxiety or depression,. Heme/endocrine: No bruising no bleeding no polyuria or polydipsia Immunology: No splenectomy or history of AIDS Exam & Diagnostic Data Vital Signs and I&O Vital Signs Date Time Temp Pulse Resp B/P Pulse O2 O2 Flow FiO2 Ox Delivery Rate 07/28 1026 Room Air 07/28 0859 98.6 71 20 152/88 95 Room Air 07/28 0810 Room Air 07/28 0800 Room Air 07/28 0024 98.4 73 20 130/70 94 Room Air 07/27 1600 98.0 77 20 126/70 96 Room Air Intake & Output 07/28 1600 07/28 0800 07/28 0000 07/27 1600 07/27 0800 07/27 0000 Intake Total 400 640 480 250 650 Output Total 775 Balance -375 640 480 250 650 Intake, IV 0 0 Intake, Oral 400 640 480 250 650 Number 2 1 3 3 Bowel Movements Output, Urine 775 Physical Exam: Well-developed well-nourished person in no acute distress HEENT: Normal EENT exam, extraocular motion intact, no nystagmus. Pupils equally round and reactive to light. Nose is atraumatic. External auditory canal and Tympanic membranes clear. Pharynx normal. No swelling or edema. Neck: No bruit. Supple, no lymphadenopathy, normal range of motion without pain or tenderness Back: Nontender, Cardiovascular: Regular rate and rhythms no murmurs, normal JVP Respiratory: Chest nontender. No respiratory distress. Breath sounds clear to auscultation bilaterally Abdomen: Soft, nontender nondistended, no appreciable organomegaly. Normal bowel sounds. No ascites Extremity: Trace pitting bilateral lower extremity edema, no calf tenderness to palpation, normal and equal pulses. Neuro: Alert oriented x3, motor sensory normal, cranial nerves II through XII grossly intact. Skin: No appreciable rash on exposed skin, skin is warm and dry. Psych: Mood and affect is normal, memory and judgment is normal. Last 24 Hours of Labs: Laboratory Tests 07/28 0620 Chemistry Sodium (137 - 145 mmol/L) 132 L Potassium (3.5 - 5.1 mmol/L) 3.8 Chloride (98 - 107 mmol/L) 103 Carbon Dioxide (22 - 30 mmol/L) 24 Anion Gap (5 - 16) 5 BUN (7 - 17 mg/dL) 14 Creatinine (0.5 - 1.0 mg/dL) 0.6 Estimated GFR (>60 ml/min) > 60 BUN/Creatinine Ratio (7 - 25 %) 23.3 Hematology CBC w Diff NO MAN DIFF REQ WBC (4.8 - 10.8 /CUMM) 4.4 L RBC (4.20 - 5.40 /CUMM) 3.56 L Hgb (12.0 - 16.0 G/DL) 10.8 L Hct (37 - 47 %) 32.5 L MCV (81.0 - 99.0 FL) 91.6 MCH (27.0 - 31.0 PG) 30.5 RDW (11.5 - 14.5 %) 14.6 H Plt Count (130 - 400 /CUMM) 165 MPV (7.4 - 10.4 FL) 7.3 L Gran % (42.2 - 75.2 %) 61.7 Lymphocytes % (20.5 - 51.1 %) 19.7 L Monocytes % (1.7 - 9.3 %) 14.4 H Eosinophils % (0 - 5 %) 3.9 Basophils % (0.0 - 2.0 %) 0.3 Absolute Granulocytes (1.4 - 6.5 /CUMM) 2.7 Absolute Lymphocytes (1.2 - 3.4 /CUMM) 0.9 L Absolute Monocytes (0.10 - 0.60 /CUMM) 0.6 Absolute Eosinophils (0.0 - 0.7 /CUMM) 0.2 Absolute Basophils (0.0 - 0.2 /CUMM) 0 PUBS MCHC (33.0 - 37.0 G/DL) 33.3 Imaging Results: PATIENT: HERIBERTO AGUILAR PRESENT AGE: 80 PATIENT ACCOUNT NO: [id number] : 34 LOCATION: [facility] ORDERING PHYSICIAN: MINE SAUNDERS SERVICE DATE: 07/25/16 EXAM TYPE: CAT - CT HEAD WO IV CONTRAST EXAMINATION: CT HEAD WITHOUT CONTRAST CLINICAL INFORMATION: Status post fall with left-sided weakness, question CVA. COMPARISON: 12/31/2010. TECHNIQUE: Contiguous axial imaging was performed from the skull base to vertex without intravenous administration of contrast. DLP: 601 mGy-cm FINDINGS: FINDINGS: There is no evidence of acute intracranial hemorrhage or territorial infarction. No abnormal mass effect or midline shift is seen. Campos to white matter differentiation is well preserved. No extra-axial fluid collections are identified. The lateral and third ventricles remain significantly dilated out of proportion to the sulcal atrophy with a ventricular shunt in place from a right frontal approach with its tip centrally located. Overall dilatation of the ventricular system appears largely unchanged to the 2010 exam without the shunt in place. There is no abnormal attenuation within the brain parenchyma. The osseous structures and soft tissues are normal. The mastoid air cells and visualized portions of the paranasal sinuses are well aerated. The petrous apices are pneumatized and clear. 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 DICTATED BY: CHI DUVALL MD DATE/TIME DICTATED:07/25/161115 PATIENT: HERIBERTO AGUILAR PRESENT AGE: 80 PATIENT ACCOUNT NO: [id number] : 34 LOCATION: [facility] ORDERING PHYSICIAN: KAREN BRAXTON MD SERVICE DATE: 07/25/161504 EXAM TYPE: US - [id number] DOPPLER EXAMINATION: US DUPLEX CAROTID AND VERTEBRAL CLINICAL INFORMATION: 80-year-old female with a history of hydrocephalus status post TERRAZZO HELPER shunt presenting with left-sided weakness. COMPARISON: Head CT performed today. TECHNIQUE: Real-time ultrasound and Doppler techniques (integrating B-mode 2D vascular images, Doppler spectral analysis and color flow Doppler imaging) were utilized to interrogate the extracranial carotid and vertebral arteries bilaterally. The degree of stenosis determined by criteria similar to NASCET. FINDINGS: On the RIGHT, there is hard plaque present at the carotid bifurcation. In the distal CCA, the peak systolic velocity is 61 cm/sec. The ICA is completely occluded. In the proximal ECA, the peak systolic velocity is 206 cm/sec. On the LEFT, there is moderate hard significant plaque present at the carotid bifurcation. In the distal CCA, the peak systolic velocity is 113 cm/sec. In the proximal ICA, the peak systolic velocity is 53 cm/sec, and the end diastolic velocity is 14 cm/sec. In the proximal ECA, the peak systolic velocity is 152 cm/sec. The vertebral arteries show antegrade flow with normal waveforms bilaterally. IMPRESSION: 1. 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 2. The left internal carotid artery shows no hemodynamically significant (0-49%) stenosis. DICTATED BY: CHIDI TIERNEY MD DATE/TIME DICTATED:07/25/162045 Assessment/Plan Assessment/Plan 80-year-old female admitted for left lower extremity weakness, possible CVA. Vascular surgery was consulted regarding her 100% occluded right internal carotid artery. Discussed case with vascular surgeon, Vinay Gallagher MD, surgical intervention and option at this time due to 100% occlusion. No surgery is required for left carotid at this time. Discussed findings with patient and her family member who is at bedside. Care per medicine team. Please contact us with any further concerns. Consult Acknowledgment - Thank you for your consult request.
[2016-07-28] MEDS ORDERED: ASPIRIN325 M2 PO (15:21)
[2016-07-28] MEDS ORDERED: ATORVASTATIN CA80 M1 PO (16:14)
[2016-07-28 16:21] VITALS: BP 152/88
== END 2016-07-28 17:28 | DRG 65 ==
LOC: ENRESERVTM → CANRESERV → ENRESERVDT → ERH 08:27 → ENPENDDIS 14:37 → ERHI 14:37 → 1NO 14:37 → EDBEDREQ 16:42 → 1NO 21:12
PROVIDERS: Internal Medicine Hematology & Oncology; Physician Assistant Surgical; ADMIT Hospitalist
DX: I63.231 Cerebral infarction due to unspecified occlusion or stenosis of right carotid arteries (principal); G91.2 (Idiopathic) normal pressure hydrocephalus; E86.0 Dehydration; G83.14 Monoplegia of lower limb affecting left nondominant side; R32 Unspecified urinary incontinence; Z85.118 Personal history of other malignant neoplasm of bronchus and lung; Z85.72 Personal history of non-Hodgkin lymphomas; Z91.81 History of falling
CPT/HCPCS: 1NP; 73502-LT; 81001; 82436; 87045; 87086; 93005; 93010; 93306; 97110-GO; 97112-GP; 97116-GO; 97162-GP; 97165-GO; 97530-GO; G8978-GP; G8979-GP; J1650; J3101